=== PATIENT | male | born 1985 | race Caucasian/White ===

== ENCOUNTER 2020-07-06 09:30 | Outpatient (NON) | payer BC, SELFPAY ==
[2020-07-06 20:28] LABS: SARS-CoV-2 RNA PCR Negative
== END 2020-07-06 09:31 ==
PROVIDERS: PCP Family Medicine; Visit Provider Physician Assistant
DX: J02.9 Acute pharyngitis, unspecified (principal); R50.9 Fever, unspecified; Z20.828 Contact with and (suspected) exposure to other viral communicable diseases
CPT/HCPCS: 87635; C9803; U0003

== ENCOUNTER 2021-05-28 01:15 | Day surgery (SDC) | payer BC, SELFPAY ==
[2021-05-27 08:24] VITALS: BMI 35.1
[2021-05-28 09:00] VITALS: BP 152/103; PULSE 89; RESP 18; TEMP 36.2; O2SAT 98; BMI 34.8
[2021-05-28] MEDS: LACTATED RINGERS 1,000 ML 150 ML IV CONT (09:07)
--- NOTE | 2021-05-28 09:41 | WPDANESEPPF ---
Anes - Initial Pre Proc Eval Procedure: Operation Date: 05/28/21 10:00 Proposed Procedures p Esophagogastroduodenoscopy - Delmar Saavedra MD Date/Time: 05/28/21 09:41 Surgeon: Delmar Saavedra MD Pre Op Diagnosis: GERD Patient Data Age: 35 Gender: M Height: 1.78 m Weight: 110.2 kg Last Vital Signs Temp 97.1 F L 05/28/21 09:00 Pulse 89 05/28/21 09:00 Resp 18 05/28/21 09:00 BP 152/103 H 05/28/21 09:00 Pulse Ox 98 05/28/21 09:00 Allergies Allergy/AdvReac Type Severity Reaction Status Date / Time Penicillins Allergy Unknown Hives Verified 05/28/21 08:59 silicone Allergy Unknown Hives Verified 05/28/21 08:59 Home Medications Medication Instructions Recorded Confirmed Type omeprazole 40 mg capsule,delayed 40 mg PO BID #180 cap 02/15/21 05/27/21 Rx release losartan 25 mg PO DAILY 05/27/21 05/27/21 History valacyclovir 500 mg PO DAILY 05/27/21 05/27/21 History Patient hx anesthesia problems: none Family hx anesthesia problems: none [facility] Past Medical History Medical History (Updated 05/28/21 @ 09:32 by Willard Qiu MD) Benign essential hypertension GERD (gastroesophageal reflux disease) Social History Social History Smoking packs per day: 0.5 Smoking cigarettes per day: 10.0 Years smoked: 3 Smoking pack-years: 1.50 Smoking status: Current every day smoker Tobacco type: cigarettes Alcohol intake: current Drinks per week: 6 Alcohol use details: BEERS Substance use: never Substance use type: does not use Living arrangements: with family Spiritual care concerns: No Anes - Eval Final PreProcedure Day of Procedure 05/28/21 09:41 Patient weight: obese Heart: regular rate and rhythm Lungs: clear to auscultation Airway: Mallampati scale class II Neurological: alert and oriented Last oral intake: >/= 8 hours ASA classification: III Emergent: no Anesthetic plan: proceed Anesthesia type and monitoring: general GIVS and standard monitoring Informed Consent: The patient's anesthetic plan and its attendant risks and benefits were discussed with the patient/family/POA. Questions were solicited and answers provided to the satisfaction of the patient/family/POA.
--- NOTE | 2021-05-28 10:02 | PM.HPGS ---
History of Present Illness History of Present Illness Consent: Risks, benefits, and alternatives have been discussed and questions answered. Patient agrees to proceed with procedure. Chief complaint: GERD Narrative: Emigdio Luke is a 35 year old male with symptomatic gerd despite omeprazole bid and sleeping upright position, EGD 2018 with long segment gerber's Review of Systems Constitutional: Constitutional: Denies headache(s) and Denies weakness Eyes: Eyes: Denies blurry vision ENT: Reports Normal hearing present, Denies headache(s) and Denies neck pain Cardiovascular: Cardiovascular: Denies chest pain and Denies dyspnea Respiratory: Respiratory: Denies dyspnea Gastrointestinal: Gastrointestinal: Reports no additional gastrointestinal complaints Genitourinary: Genitourinary: Denies dysuria Musculoskeletal: Musculoskeletal: Denies neck pain Integumentary/Breasts: Skin/Breast: Denies dry skin Neurologic: Reports Normal hearing present, Denies headache(s) and Denies weakness Psychiatric: Psychiatric: Denies anxiety Endocrine: Endocrine: Denies change in body appearance Hematologic/Lymphatic: Hematologic/Lymphatic: Denies easy bleeding Allergic/Immunologic: Allergic/Immunologic: Denies urticaria PMF Past Medical History Medical History (Updated 05/28/21 @ 10:03 by Delmar Saavedra MD) Gerber esophagus Benign essential hypertension GERD (gastroesophageal reflux disease) Social History Social History Smoking packs per day: 0.5 Smoking cigarettes per day: 10.0 Years smoked: 3 Smoking pack-years: 1.50 Smoking status: Current every day smoker Tobacco type: cigarettes Alcohol intake: current Drinks per week: 6 Alcohol use details: BEERS Substance use: never Substance use type: does not use Living arrangements: with family Spiritual care concerns: No Meds Home Medications and Allergies Home Medications Medication Instructions Recorded Confirmed Type omeprazole 40 mg capsule,delayed 40 mg PO BID #180 cap 02/15/21 05/27/21 Rx release losartan 25 mg PO DAILY 05/27/21 05/27/21 History valacyclovir 500 mg PO DAILY 05/27/21 05/27/21 History Allergies Allergy/AdvReac Type Severity Reaction Status Date / Time Penicillins Allergy Unknown Hives Verified 05/28/21 08:59 silicone Allergy Unknown Hives Verified 05/28/21 08:59 Vital Signs Vital Signs - 24 hr 05/28/21 09:00 Temperature 97.1 F L Pulse Rate 89 Respiratory Rate 18 Blood Pressure 152/103 H Pulse Oximetry 98 Exam Const: General: comfortable and no acute distress HENMT: General nose exam: Normal nares present Eyes: General: appearance normal, both eyes and all related structures Neck: Neck: no JVD Resp: Auscultation: clear to auscultation bilaterally Cardio: Rate: regular rate Rhythm: regular rhythm GI: Inspection: non-distended GI Palp: Yes Soft to palpation Skin: General skin exam: normal color Neuro: General: gait normal Speech: normal speech Extrem: General: normal to inspection Psych: Mental Status: mental status grossly normal Assessment and Plan Assessment and plan (1) Gastroesophageal reflux disease: Code(s): K21.9 - Gastro-esophageal reflux disease without esophagitis Status: Acute Assessment and Plan: egd with bx (2) Gerber esophagus: Code(s): K22.70 - Gerber's esophagus without dysplasia Status: Acute
[2021-05-28 10:06] VITALS: BP 138/93; PULSE 98; RESP 19; O2SAT 100
[2021-05-28 10:16] VITALS: BP 130/90; PULSE 81; RESP 23; O2SAT 93
[2021-05-28 10:26] VITALS: BP 104/85; PULSE 85; RESP 19; O2SAT 96
== END 2021-05-28 10:29 | disposition home or self-care (01) ==
PROVIDERS: PCP Family Medicine; Visit Provider Internal Medicine Gastroenterology
PROC: 0DJ08ZZ Inspection of Upper Intestinal Tract, Via Natural or Artificial Opening Endoscopic (ICD-10-PCS; CPT 43235; principal; 2021-05-28 10:00)
DX: K21.00 Gastro-esophageal reflux disease with esophagitis, without bleeding (principal); K22.70 Barrett's esophagus without dysplasia; K44.9 Diaphragmatic hernia without obstruction or gangrene; K29.50 Unspecified chronic gastritis without bleeding; F17.210 Nicotine dependence, cigarettes, uncomplicated; E66.9 Obesity, unspecified; Z68.34 Body mass index [BMI] 34.0-34.9, adult; I10 Essential (primary) hypertension
CPT/HCPCS: 43239; 88305; J2704; J7120

== ENCOUNTER 2021-07-09 08:14 | Outpatient (CLI) | payer BC, SELFPAY ==
--- NOTE | ~2021-07-09 | XR_ITS ---
EXAMINATION: XR UGIAC w barium swallow DATE: 07/09/2021 08:54 INDICATION: Gastroesophageal reflux disease without esophagitis TECHNIQUE: The patient drank thick barium, gas-producing crystals, and thin barium. Fluoroscopy of th e esophagus, stomach, and proximal small bowel were performed. Fluoroscopy exposure time was 2.7 liane artur. The DAP for this procedure was 32.933 Gycm2. COMPARISON: None. FINDINGS: There is no mass or stricture of the esophagus. Esophageal motility is normal. There is a m oderate-sized hiatal hernia. There was a significant spontaneous and provoked gastroesophageal reflux . The stomach and proximal small bowel show normal folding patterns. IMPRESSION: 1. Moderate size hiatal hernia with significant reflux. Reviewed, dictated and finalized at location A.
== END 2021-07-09 08:15 | disposition home or self-care (01) ==
PROVIDERS: PCP Family Medicine; Visit Provider Surgery
DX: K21.00 Gastro-esophageal reflux disease with esophagitis, without bleeding (principal); K22.70 Barrett's esophagus without dysplasia; K44.9 Diaphragmatic hernia without obstruction or gangrene
CPT/HCPCS: 74246

== ENCOUNTER 2021-08-30 13:50 | Outpatient (CLI) | payer BC, SELFPAY ==
--- NOTE | 2021-08-30 14:22 | ECG_ITS ---
Measurements Intervals Farner Rate: 63 P: 14 MT: 172 QRS: 7 QRSD: 100 T: 7 QT: 377 QTc: 388 Interpretive Statements SINUS RHYTHM INCOMPLETE RIGHT BUNDLE BRANCH BLOCK BASELINE ARTIFACT- I, II, III, AVR, AVL BORDERLINE ECG Electronically Signed On 08-30-2021 16:08:48 CDT by Adam Fleming D.O.
[2021-08-30 14:38] LABS: Hematocrit 36.7 % (42.0-52.0); Hemoglobin 12.3 g/dL (14.0-18.0)
== END 2021-08-30 13:51 | disposition home or self-care (01) ==
PROVIDERS: Anesthesiology; PCP Physician Assistant; Visit Provider Surgery
DX: Z01.818 Encounter for other preprocedural examination (principal); K21.9 Gastro-esophageal reflux disease without esophagitis
CPT/HCPCS: 36415; 85014; 85018; 93005

== ENCOUNTER 2021-09-23 16:11 | Observation (INO) | payer BC, SELFPAY ==
[2021-08-30 13:52] VITALS: BP 134/90; PULSE 66; RESP 20; TEMP 36.9; O2SAT 98; BMI 36.8
--- NOTE | 2021-09-21 12:09 | PM.IMHP ---
H&P: HPI History of Present Illness Date/Time: 09/21/21 12:09 Chief Complaint: Gastroesophageal reflux Narrative: Emigdio is a 35 year old male who present for a surgical consultation at the request of Dr. Magaña. He has a 2 year history of GERD and Vizcaino's esophageus which he has been on Esomeprazole 40 mg BID for treatment. For the past 1 year, he has had coughing at night and vomiting bile. He has made multiple changes to help this. He sleeps with a wedge pillow under his head to help. He no longer eats after 6 p.m. He no longer sleeps on his stomach and now sleeps on his side. He smokes about half pack a day of cigarettes and drinks about 1-2 beers a night. He had a EGD on 05-28-21 which showed a 7cm long segment Vizcaino's mucosa was present in the mid esophagus and in the distal esophagus. The upper border of Vizcaino';s mucosa was 29 cm from the incisors and lower border at 36 cm. Multiple biopsies taken. A medium hiatal hernia was found at the GE junction. The hiatal hernia appeared at the depth of 36cm to 40 cm from the incisor. This is about 4 cm in size. Mild gastritis was seen in the stomach. The gastritis had a mild erythematous changes.Biopsies showed: stomach- non specific mild chronic gastritis, esophagus at 36-35cm Vizcaino's esophagus with moderate chronic esophagitis consistent with reflux. Negative for dysplasia, ulcer and neoplasm. Esophagus at 34-33- Vizcaino's esophagus with moderate chronic esophagitis consistent with reflux. Negative for dysplasia, ulcer, neoplasm. Esophagus at 32-31 Vizcaino's esophagus with moderate chronic esophagitis consistent with reflux. Negative for squamous mucosa, dysplasia, ulcer and neoplasm. Esophagus at 30-29 cm Vizcaino's esophagus with mild chronic esophagitis. Negative for dysplasia, ulcer, and neoplasm. He also had a EGD in 2018 which showed long segment Vizcaino's. He is currently being treated for HTN. His current BMI is 35.3. He was seen in the office last June and esophageal manometry as well as an upper GI was done following that visit. The esophagram, upper GI showed a moderate-sized hiatal hernia with reflux. The esophageal manometry showed a hypotensive lower esophageal sphincter but adequate esophageal body peristalsis for fundoplication. Patient was seen back in the office in late July and the results were discussed. The procedure of laparoscopic Boaz fundoplication was discussed thoroughly. He is taken to surgery now to proceed with this surgery. Review of Systems Review of Systems: All systems reviewed & are unremarkable except as noted in HPI and below Constitutional: Constitutional: Denies chills and Denies fever(s) Cardiovascular: Cardiovascular: Denies chest pain, Denies diaphoresis, Denies dyspnea and Denies paroxysmal nocturnal dyspnea Respiratory: Respiratory: Denies chest congestion, Denies cough and Denies dyspnea Integumentary/Breasts: Skin/Breast: Denies lesions and Denies rash [facility] Past Medical History Medical History (Updated 09/21/21 @ 12:20 by Dylan Arthur MD) Vizcaino's esophagus without dysplasia Benign essential hypertension Gastroesophageal reflux disease with esophagitis Hiatal hernia Surgical History Surgical History History of esophagogastroduodenoscopy (EGD) History of laparoscopic appendectomy 2003 Social History Social History Smoking packs per day: 0.5 Smoking cigarettes per day: 10.0 Years smoked: 3 Smoking pack-years: 1.50 Smoking status: Former smoker Tobacco type: cigarettes Second hand tobacco smoke exposure: No Additional smoking assessment comments: STATES HAS NOT SMOKED SINCE MARCH 2021 - DENIES ALL FORMS OF TOBACCO USE Alcohol intake: former Drinks per week: 6 Alcohol use details: [facility] WAS DRINKING 6 BEERS/WK, NONE SINCE JUL 2021 Substance use: never Substance use type: does not use Spiritua
--- NOTE | 2021-09-21 13:48 | P.PNAN_ITS ---
Anes - Initial Pre Proc Eval Procedure: Operation Date: 09/22/21 10:30 Proposed Procedures p Laparoscopic Boaz Fundoplication - Dylan Arthur MD Date/Time: 09/21/21 13:48 Surgeon: Dylan Arthur MD Pre Op Diagnosis: gerd, gerber's esophagus Patient Data Age: 36 Gender: M Height: 1.78 m Weight: 116.4 kg Last Vital Signs Temp 36.9 C 08/30/21 13:52 Pulse 66 08/30/21 13:52 Resp 20 08/30/21 13:52 BP 134/90 08/30/21 13:52 Pulse Ox 98 08/30/21 13:52 Allergies Allergy/AdvReac Type Severity Reaction Status Date / Time Penicillins Allergy Unknown Hives Verified 09/22/21 08:40 silicone Allergy Unknown Hives Verified 09/22/21 08:40 Home Medications Medication Instructions Recorded Confirmed Type losartan 25 mg PO QAM 05/27/21 09/22/21 History valacyclovir 500 mg PO QAM 05/27/21 09/22/21 History omeprazole 40 mg capsule,delayed 40 mg PO BID #180 cap 09/17/21 09/22/21 Rx release Patient hx anesthesia problems: none Family hx anesthesia problems: none Results Review: All pre-operative results and documents have been reviewed as part of the pre-operative evaluation. FOR[facility]LY [facility], [facility] Past Medical History Medical History Gerber's esophagus without dysplasia Benign essential hypertension BMI 35.0-35.9,adult Gastroesophageal reflux disease with esophagitis Hiatal hernia Smoker Surgical History Surgical History History of esophagogastroduodenoscopy (EGD) History of laparoscopic appendectomy 2003 Social History Social History Smoking packs per day: 0.5 Smoking cigarettes per day: 10.0 Years smoked: 3 Smoking pack-years: 1.50 Smoking status: Former smoker (Patient hasn't had a cigarette in 6 weeks) Tobacco type: cigarettes Second hand tobacco smoke exposure: No Additional smoking assessment comments: STATES HAS NOT SMOKED SINCE MARCH 2021 - DENIES ALL FORMS OF TOBACCO USE Alcohol intake: current Drinks per week: 6 Alcohol use details: BEERS Substance use: never Substance use type: does not use Living arrangements: with family Spiritual care concerns: No Anes - Eval Final PreProcedure Day of Procedure 09/21/21 13:48 Patient weight: obese Heart: regular rate and rhythm Lungs: clear to auscultation and normal air movement Airway: Mallampati scale class II Neurological: alert and oriented Last oral intake: >/= 8 hours ASA classification: III Emergent: no Anesthetic plan: proceed Anesthesia type and monitoring: general ETT Results Review: All pre-operative results and documents have been reviewed as part of the pre-operative evaluation. Informed Consent: The patient's anesthetic plan and its attendant risks and benefits were discussed with the patient/family/POA. Questions were solicited and answers provided to the satisfaction of the patient/family/POA.
[2021-09-22] VITALS (15 sets, daily range): BP systolic 125–141; BP diastolic 80–94; PULSE 72–95; RESP 12–18; TEMP 36.1–36.9; O2SAT 94–100
[2021-09-22] MEDS: LACTATED RINGERS 1,000 ML 30 ML IV CONT ×3 (09:10→15:07)
[2021-09-22] MEDS: diphenhydrAMINE HCl INJ 50 MG/ML VIAL IV PUSH (10:33)
--- NOTE | 2021-09-22 10:58 | WPDHPUPDATE1 ---
History and Physical Update Update Date/Time: 09/22/21 10:58 History and Physical has been reviewed, including an updated exam of the patient. There are NO changes in the patient's condition. Risks, benefits, and alternatives have been discussed and questions answered. Patient agrees to proceed with procedure.
[2021-09-22] MEDS: ceFAZolin 2 GM/D5W 50 ML 2 GM/50 ML BAG IVPB (11:02)
[2021-09-22] MEDS: BUPIVACAINE HCL 0.5% PF 30 ML VIAL INFILTRATE (12:15)
[2021-09-22] MEDS: fentaNYL CITRATE INJ (*CRX) 100 MCG/2 ML VIAL 25 MCG IV PUSH ×8 (15:10→15:53)
--- NOTE | 2021-09-22 15:22 | W.PM.PROC2 ---
Procedure Note - Detailed Date of Procedure 09/22/21 Pre-op Diagnosis gerd with esophagitis, gerber's esophagus Post-op Diagnosis same Procedure Performed Laparoscopic Boaz fundoplication Surgeon Dylan Arthur MD Ring Packer Chaya Marcano FNP. Anesthesia general and local (0.5% Marcaine) Indications Patient has persistent symptoms of reflux and regurgitation despite taking twice daily proton pump inhibitors. EGD has shown long segment Gerber's esophagus as well as chronic esophagitis even on medication. The Gerber's did not show any dysplasia. Patient's esophageal manometry showed normal peristalsis. He is taken to surgery now for laparoscopic Boaz fundoplication Findings Patient had a larger hiatal hernia than what was appreciated on upper GI and by EGD report. At least 50% of his stomach was in the chest. He had quite a large hernia sac as well. There was an esophageal shortening and this required extensive mediastinal dissection to get adequate length of the esophagus in the abdomen. No other significant findings. Description of Procedure Patient was taken to surgery and induced into general anesthesia. The abdomen is prepped and draped. The varies needle was used for the initial placement of insufflation. This was in the port just cephalad to the umbilicus in the midline. With the abdomen distended, we then used applied Medical [address] the initial port. Then with full insufflation the remaining ports were placed. Two ports were placed on either side of the midline higher in the abdomen. A right and left subcostal lateral port was placed on each side. The left side was a 10 11 port the right side was a 12 mm port. Patient was placed in reverse Trendelenburg. Liver retractor was introduced through the left-sided 12 mm port. This was placed under the lateral segment of the left lobe of the liver and an procurement assistant retracted this throughout the surgery. We started the surgery by dividing the gastrohepatic ligament in a clear area. The LigaSure was used for nearly the entire dissection. We continued the dissection on to the right tiffanie and exposed it. We then the tiffanie from the hernia sac on the right side and began dissection up into the mediastinum. This was mostly done with blunt dissection although some LigaSure cautery was used as well. We freed the hernia sac and reduced the stomach entirely. We continued our dissection and were able to reduce the hernia sac completely. The most posterior aspect of the left tiffanie was also exposed and dissected. We freed the esophagus from mediastinal adhesions in the lower portion of the mediastinum primarily from the anterior and right aspects. From there, the stomach was pulled so up so the greater curvature was elevated anterior and we placed traction on the greater omentum. The LigaSure was used to divide the greater omentum from the greater curvature of the stomach and enter the lesser sac. This dissection was continued cephalad along the border of the fundus and cardia of the stomach until we were in the area of the esophageal hiatus. Additional adhesions of the posterior aspect of the stomach to the retroperitoneum were divided with LigaSure as well. The hernia sac was dissected out of the mediastinum from the patient's left side from this exposure. Eventually the entire left tiffanie was dissected free from adhesions and the hernia sac. We continued our dissection of the distal esophagus from this exposure and dissected up well into the mediastinum freeing the esophagus. Care was taken to avoid injury to the vagus nerves. We then returned the stomach to its more normal position and resumed dissection on the right side of the esophagus. With gentle traction on the upper stomach and lower esophagus at the level of the left tiffanie, I was able to continued dissection of the mediastinum and the esophagus farther up on the patient's right side. There
--- NOTE | 2021-09-22 16:09 | SUR.PHASEI ---
[id number] - dr. hillman at bedside talking with pt
--- NOTE | 2021-09-22 17:21 | PC.NURSE ---
This patient, Emigdio Luke, was admitted to Medical Room 344-01. Patient/family oriented to hospital policies and general routines including ID bracelet, bed and alarms, visiting hours, pain management, procedures, bathroom and other care routines, personal items, smoking policy, room service/diet, and visiting hours. Information on how to activate the Rapid Response Team has been discussed. Patient/Family are encouraged to report perceived risks to care and to ask questions if they do not understand what they are told or what they should do.
[2021-09-22] MEDS: LACTATED RINGERS 1,000 ML 80 ML IV CONT (17:33)
[2021-09-22] MEDS: HYDROcodone/acetaminophen (*CRX) 5-325 MG TABLET 1 TAB PO (18:30)
[2021-09-22] MEDS: MORPHINE SULFATE (*CRX) 2 MG/ML INJ IV PUSH (21:11)
[2021-09-23] MEDS: HYDROcodone/acetaminophen (*CRX) 10-325 MG TABLET 1 TAB PO ×4 (04:01→22:36)
[2021-09-23 04:04] VITALS: BP 145/88; PULSE 74; RESP 17; TEMP 36.4; O2SAT 97
[2021-09-23 05:54] LABS: Hematocrit 42.6 % (42.0-52.0); Hemoglobin 13.5 g/dL (14.0-18.0); Mean Corpuscular HGB Conc 31.7 g/dl (32-36); Mean Corpuscular Hemoglobin 27.8 pg (26-34); Mean Corpuscular Volume 87.8 fl (80-100); Mean Platelet Volume 11.7 fl (7.4-10.4); Platelet Count Result 183 k/mm3 (150-375); Red Blood Count 4.85 M/mm3 (4.6-6.20); Red Cell Distribution Width 13.4 % (11.5-14.5); White Blood Count 9.2 K/mm3 (4.5-10.0)
[2021-09-23] MEDS: LACTATED RINGERS 1,000 ML 80 ML IV CONT (06:08)
[2021-09-23 06:11] LABS: Anion Gap 8 mmol/L (8-16); Blood Urea Nitrogen 14 mg/dL (9-20); Carbon Dioxide 26 mmol/L (22-30); Chloride 99 mmol/L (98-107); Estimated CRCL calculation 114 ml/min; Estimated Glomerular Filt Rate > 60; Glucose 107 mg/dL (65-110); Sodium 133 mmol/L (137-145)
[2021-09-23] MEDS: PANTOPRAZOLE 40 MG TABLET PO (07:36)
[2021-09-23] MEDS: LOSARTAN POTASSIUM 25 MG TABLET PO (07:36)
[2021-09-23] MEDS: ENOXAPARIN 40 MG/0.4 ML SYRINGE SUB-Q (07:36)
[2021-09-23] MEDS: valACYclovir HCL 500 MG TABLET PO (07:36)
--- NOTE | 2021-09-23 12:30 | WPDANESPN ---
Anes - Prog Note Post-Op Date/Time: 09/23/21 12:30 Cardiovascular status: normal Respiratory status: normal Airway patency: baseline Mental status: baseline Post-Op hydration status: normal Vital Signs: Last Vital Signs Temp 36.4 C 09/23/21 04:04 Pulse 74 09/23/21 04:04 Resp 17 09/23/21 04:04 BP 145/88 H 09/23/21 04:04 Pulse Ox 97 09/23/21 04:04 Pain Score (VAS): 0 I/O: Intake & Output 09/22/21 09/23/21 09/23/21 23:59 07:59 15:59 Intake Total 100 1200 360 Output Total 765 800 Balance 100 435 -440 Laboratory Tests 09/23/21 05:26 09/23/21 05:26 09/23/21 09/23/21 05:26 05:26 WBC 9.2 RBC 4.85 Hgb 13.5 L Hct 42.6 MCV 87.8 MCH 27.8 MCHC 31.7 L RDW 13.4 Plt Count 183 MPV 11.7 H Sodium 133 L Potassium 4.0 Chloride 99 Carbon Dioxide 26 Anion Gap 8 BUN 14 Creatinine 1.00 Estim Creat Clear Calc 114 Estimated GFR > 60 Glucose 107 Calcium 9.0 Post-procedural complaints: none Patient Feedback: Patient satisfied with anesthetic care.
[2021-09-23] MEDS: MORPHINE SULFATE (*CRX) 2 MG/ML INJ IV PUSH ×2 (13:10→20:20)
--- NOTE | 2021-09-23 14:41 | PM.PNGS ---
Progress Note: A&P Assessment and Plan (1) Gastroesophageal reflux disease with esophagitis: Code(s): K21.00 - Gastro-esophageal reflux disease with esophagitis, without bleeding Status: Chronic Assessment and Plan: Doing well status post repair of hiatal hernia and Boaz fundoplication. Will advance to full liquids and possibly soft diet. Up walking more today. Saline lock his IV fluid. Continue home medications for hypertension. Patient will remain in the hospital as he is unsteady on his feet and still having significant amount of postoperative pain. So far the dysphagia is not bad. (2) Vizcaino's esophagus without dysplasia: Code(s): K22.70 - Vizcaino's esophagus without dysplasia Status: Chronic Subjective Subjective Date/Time Seen: 09/23/21 08:15 Post Op day: 1 Patient reports: no new complaints, pain is less, tolerating liquids well, no flatus and no bowel movement Exam Const: General: comfortable and no acute distress; No confusion Orientation/consciousness: patient oriented x3 and No confusion GI: Inspection: non-distended, incision (All incisions dry and healing well) and obesity GI Palp: Yes Soft to palpation, Yes Tenderness to palpation present (GI), No Guarding due to palpation present (GI) and No Rebound tenderness present Auscultation: normal bowel sounds Neuro: General: patient oriented x3, no focal motor deficits and No confusion Extrem: General: no calf tenderness and no edema Psych: Affect: normal affect Insight: Good insight present (Psych) Judgement: Good judgement present (Psych) Objective Data Vital Signs Vital Signs: Vital Signs - 24 hr 09/22/21 15:07 09/22/21 15:15 09/22/21 15:30 Temperature 36.1 C L Pulse Rate 95 83 82 Respiratory Rate 14 12 12 Blood Pressure 135/82 139/87 130/86 Pulse Oximetry 99 99 94 09/22/21 15:45 09/22/21 16:00 09/22/21 16:15 Temperature Pulse Rate 81 80 80 Respiratory Rate 12 12 12 Blood Pressure 132/88 127/84 132/80 Pulse Oximetry 98 98 98 09/22/21 16:30 09/22/21 16:45 09/22/21 17:35 Temperature 36.5 C Pulse Rate 80 78 83 Respiratory Rate 12 14 14 Blood Pressure 125/83 126/84 125/81 Pulse Oximetry 99 97 100 09/22/21 17:41 09/22/21 17:50 09/22/21 18:20 Temperature 36.5 C 36.6 C Pulse Rate 72 84 Respiratory Rate 16 16 Blood Pressure 135/84 137/89 Pulse Oximetry 98 100 100 09/22/21 19:22 09/22/21 20:00 09/23/21 04:04 Temperature 36.9 C 36.4 C Pulse Rate 90 90 74 Respiratory Rate 18 18 17 Blood Pressure 130/81 145/88 H Pulse Oximetry 99 99 97 Intake/Output Intake/Output: Intake & Output 09/20/21 09/21/21 09/22/21 09/23/21 23:59 23:59 23:59 23:59 Intake Total 1150 1920 Output Total 1565 Balance 1150 355 Meds/Results Medications: Active Medications Generic Name Dose Route Start Last Admin Trade Name Freq PRN Reason Stop Dose Admin Acetaminophen 500 mg 09/22/21 16:54 Acetaminophen 500 Mg Tablet PO Q6H PRN Mild Pain (1-3) or Fever Hydrocodone Bitart/Acetaminophen 1 tab 09/22/21 16:54 09/22/21 18:30 Hydrocodone/Acetaminophen (*Crx) 5-325 Mg Tablet PO 1 tab Q4H PRN Administration Pain Rated 4-6 Hydrocodone Bitart/Acetaminophen 1 tab 09/22/21 16:54 09/23/21 09:42 Hydrocodone/Acetaminophen (*Crx) 10-325 Mg Tablet PO 1 tab Q6H PRN Administration Pain Rated 7-10 Diphenhydramine HCl 25 mg 09/22/21 16:54 Diphenhydramine Hcl Inj 50 Mg/Ml Vial IV PUSH Q6H PRN Itching Enoxaparin Sodium 40 mg 09/23/21 09:00 09/23/21 07:36 Enoxaparin 40 Mg/0.4 Ml Syringe SUB-Q 40 mg DAILY ROSS Administration Losartan Potassium 25 mg 09/23/21 09:00 09/23/21 07:36 Losartan Potassium 25 Mg Tablet PO 25 mg QAM ROSS Administration Morphine Sulfate 2 mg 09/22/21 16:54 09/23/21 13:10 Morphine Sulfate (*Crx) 2 Mg/Ml Inj IV PUSH 2 mg Q2H PRN Administration Pain Rated 4-6 Morphine Sulfate 4 mg 11
[2021-09-23 19:57] VITALS: BP 132/90; PULSE 98; RESP 16; TEMP 36.4; O2SAT 96
[2021-09-23 20:00] VITALS: PULSE 98; RESP 16; O2SAT 96
[2021-09-24 05:19] VITALS: BP 159/92; PULSE 98; RESP 18; TEMP 36.5; O2SAT 97
[2021-09-24] MEDS: HYDROcodone/acetaminophen (*CRX) 10-325 MG TABLET 1 TAB PO ×2 (05:47→13:18)
[2021-09-24 05:49] LABS: Hematocrit 41.5 % (42.0-52.0); Hemoglobin 13.5 g/dL (14.0-18.0); Mean Corpuscular HGB Conc 32.5 g/dl (32-36); Mean Corpuscular Volume 85.9 fl (80-100); Mean Platelet Volume 11.5 fl (7.4-10.4); Platelet Count Result 174 k/mm3 (150-375); Red Blood Count 4.83 M/mm3 (4.6-6.20); Red Cell Distribution Width 13.4 % (11.5-14.5)
--- NOTE | 2021-09-24 05:51 | PC.NURSE ---
Pt up and ambulated to bathroom, refused walk in the zabala, encouraged to sit in chair and be out of bed.
[2021-09-24 06:01] LABS: Anion Gap 3 mmol/L (8-16); Blood Urea Nitrogen 10 mg/dL (9-20); Calcium 9.1 mg/dL (8.4-10.2); Carbon Dioxide 29 mmol/L (22-30); Chloride 102 mmol/L (98-107); Estimated CRCL calculation 140 ml/min; Estimated Glomerular Filt Rate > 60; Glucose 107 mg/dL (65-110); Potassium 3.8 mmol/L (3.4-5.0); Sodium 134 mmol/L (137-145)
[2021-09-24] MEDS: LOSARTAN POTASSIUM 25 MG TABLET PO (08:19)
[2021-09-24] MEDS: PANTOPRAZOLE 40 MG TABLET PO (08:20)
[2021-09-24] MEDS: ENOXAPARIN 40 MG/0.4 ML SYRINGE SUB-Q (08:20)
[2021-09-24] MEDS: valACYclovir HCL 500 MG TABLET PO (08:20)
--- NOTE | 2021-09-24 12:54 | PM.PNGS ---
Progress Note: A&P Assessment and Plan (1) Gastroesophageal reflux disease with esophagitis: Code(s): K21.00 - Gastro-esophageal reflux disease with esophagitis, without bleeding Status: Chronic Assessment and Plan: still pretty uncomfortable with right flank pain at the trocar site as well as epigastric and lower chest pain. Not ambulating well and morphine lasts only a short time. Will add oral ibuprofen 600 mg p.o. q.6 hours. Encouraged use of spirometer. Advance to soft diet. Still too uncomfortable and not ambulating well enough to be discharged. (2) Vizcaino's esophagus without dysplasia: Code(s): K22.70 - Vizcaino's esophagus without dysplasia Status: Chronic Subjective Subjective Date/Time Seen: 09/24/21 12:54 Post Op day: 2 Patient reports: still having pain, tolerating liquids well, no bowel movement and afebrile Exam Const: General: comfortable and no acute distress; No confusion Orientation/consciousness: patient oriented x3 and No confusion Resp: Effort & Inspection: normal respiratory effort Auscultation: clear to auscultation bilaterally GI: Inspection: no abdominal wall ecchymosis, non-distended, incision ( all incisions healing well) and obesity GI Palp: Yes Soft to palpation, Yes Tenderness to palpation present (GI) ( incisional), No Guarding due to palpation present (GI), No Hernia present, No Palpable mass present and No Rebound tenderness present Auscultation: normal bowel sounds Neuro: General: patient oriented x3, no focal motor deficits and No confusion Extrem: General: no calf tenderness and no edema Psych: Affect: normal affect Insight: Good insight present (Psych) Judgement: Good judgement present (Psych) Objective Data Vital Signs Vital Signs: Vital Signs - 24 hr 09/23/21 19:57 09/23/21 20:00 09/24/21 05:19 Temperature 36.4 C 36.5 C Pulse Rate 98 98 98 Respiratory Rate 16 16 18 Blood Pressure 132/90 159/92 H Pulse Oximetry 96 96 97 Intake/Output Intake/Output: Intake & Output 09/21/21 09/22/21 09/23/21 09/24/21 23:59 23:59 23:59 23:59 Intake Total 1150 2280 440 Output Total 3115 Balance 1150 -835 440 Meds/Results Medications: Active Medications Generic Name Dose Route Start Last Admin Trade Name Freq PRN Reason Stop Dose Admin Acetaminophen 500 mg 09/22/21 16:54 Acetaminophen 500 Mg Tablet PO Q6H PRN Mild Pain (1-3) or Fever Hydrocodone Bitart/Acetaminophen 1 tab 09/22/21 16:54 09/22/21 18:30 Hydrocodone/Acetaminophen (*Crx) 5-325 Mg Tablet PO 1 tab Q4H PRN Administration Pain Rated 4-6 Hydrocodone Bitart/Acetaminophen 1 tab 09/22/21 16:54 09/24/21 05:47 Hydrocodone/Acetaminophen (*Crx) 10-325 Mg Tablet PO 1 tab Q6H PRN Administration Pain Rated 7-10 Diphenhydramine HCl 25 mg 09/22/21 16:54 Diphenhydramine Hcl Inj 50 Mg/Ml Vial IV PUSH Q6H PRN Itching Enoxaparin Sodium 40 mg 09/23/21 09:00 09/24/21 08:20 Enoxaparin 40 Mg/0.4 Ml Syringe SUB-Q 40 mg DAILY ROSS Administration Ibuprofen 600 mg 09/24/21 12:55 Ibuprofen 600 Mg Tablet PO Q6H ROSS Losartan Potassium 25 mg 09/23/21 09:00 09/24/21 08:19 Losartan Potassium 25 Mg Tablet PO 25 mg QAM ROSS Administration Morphine Sulfate 2 mg 09/22/21 16:54 09/23/21 20:20 Morphine Sulfate (*Crx) 2 Mg/Ml Inj IV PUSH 2 mg Q2H PRN Administration Pain Rated 4-6 Morphine Sulfate 4 mg 09/22/21 16:54 Morphine Sulfate (*Crx) 4 Mg/Ml Inj IV PUSH Q2H PRN Pain Rated 7-10 Naloxone HCl 0.1 mg 09/22/21 16:54 Naloxone Hcl 0.4 Mg/Ml Vial IV PUSH Q2M PRN Opiate Reversal Ondansetron HCl 4 mg 09/22/21 16:54 Ondansetron Inj 4 Mg/2 Ml Vial IV PUSH Q4H PRN Nausea And Vomiting Pantoprazole Sodium 40 mg 09/23/21 09:00 09/24/21 08:20 Pantoprazole 40 Mg Tablet PO 40 mg QAM ROSS Administration Valacyclovir HCl 500 mg 09/23/21 09:00
[2021-09-24] MEDS: IBUPROFEN 600 MG TABLET PO ×3 (13:20→23:23)
[2021-09-24 22:00] VITALS: BP 116/87; PULSE 78; RESP 18; TEMP 36.6; O2SAT 96
[2021-09-25 00:36] VITALS: O2SAT 95
[2021-09-25] MEDS: IBUPROFEN 600 MG TABLET PO ×2 (05:46→12:08)
[2021-09-25] MEDS: HYDROcodone/acetaminophen (*CRX) 5-325 MG TABLET 1 TAB PO (05:46)
[2021-09-25 06:45] LABS: Hematocrit 42.1 % (42.0-52.0); Hemoglobin 13.7 g/dL (14.0-18.0); Mean Corpuscular HGB Conc 32.5 g/dl (32-36); Mean Corpuscular Hemoglobin 27.7 pg (26-34); Mean Corpuscular Volume 85.1 fl (80-100); Mean Platelet Volume 11.2 fl (7.4-10.4); Platelet Count Result 194 k/mm3 (150-375); Red Blood Count 4.95 M/mm3 (4.6-6.20); Red Cell Distribution Width 13.2 % (11.5-14.5); White Blood Count 6.9 K/mm3 (4.5-10.0)
[2021-09-25 07:34] VITALS: BP 149/99; PULSE 83; RESP 18; TEMP 36.5; O2SAT 96
[2021-09-25 07:45] LABS: Anion Gap 4 mmol/L (8-16); Blood Urea Nitrogen 12 mg/dL (9-20); Calcium 9.4 mg/dL (8.4-10.2); Carbon Dioxide 31 mmol/L (22-30); Chloride 101 mmol/L (98-107); Estimated CRCL calculation 114 ml/min; Estimated Glomerular Filt Rate > 60; Glucose 102 mg/dL (65-110); Potassium 4.2 mmol/L (3.4-5.0); Sodium 136 mmol/L (137-145)
[2021-09-25] MEDS: PANTOPRAZOLE 40 MG TABLET PO (08:22)
[2021-09-25] MEDS: LOSARTAN POTASSIUM 25 MG TABLET PO (08:22)
[2021-09-25] MEDS: ENOXAPARIN 40 MG/0.4 ML SYRINGE SUB-Q (08:22)
[2021-09-25] MEDS: valACYclovir HCL 500 MG TABLET PO (08:22)
--- NOTE | 2021-09-25 13:27 | PM.DS ---
DS: Admitting Diagnosis Discharge Date 09/25/2021 Admitting Diagnosis GERD, Vizcaino's esophagus without dysplasia, BMI 37, smoker, hypertension DS: Discharge Diagnosis Discharge Diagnosis (1) Gastroesophageal reflux disease with esophagitis: Code(s): K21.00 - Gastro-esophageal reflux disease with esophagitis, without bleeding Status: Chronic (2) Vizcaino's esophagus without dysplasia: Code(s): K22.70 - Vizcaino's esophagus without dysplasia Status: Chronic (3) BMI 37.0-37.9, adult: Code(s): Z68.37 - Body mass index [BMI] 37.0-37.9, adult Status: Chronic (4) Smoker: Code(s): F17.200 - Nicotine dependence, unspecified, uncomplicated Status: Chronic (5) Benign essential hypertension: Code(s): I10 - Essential (primary) hypertension Status: Chronic DS: Summary Hospital Course Reason for hospitalization: postoperative recovery after laparoscopic Boaz fundoplication Hospital Course: this is a 36-year-old man who presented for elective laparoscopic Boaz fundoplication on 09/22/2021. Surgery was uncomplicated and he was admitted to the hospital for postoperative recovery. He was kept on clear liquid diet initially. On postop day 1 he was advanced to full liquids diet and his pain was slightly better controlled. He was still not ambulating very much. On postoperative day 2 he was still uncomfortable but was tolerating diet. His diet was advanced to a soft diet. On postop day 3 he was tolerating the solid diet without any nausea or vomiting. He did have some slight dysphagia, but that was dependent on what he was eating. Discussed staying away from red meat initially and trying to have very small bites of easy to chew food. He was remaining hemodynamically stable and pain was well controlled. He was discharged on 09/25/2021. Status at Discharge Functional status at discharge: independent ambulation Overall status at discharge: patient is progressing back to baseline Time Spent with Patient Time attestation: Total time spent providing and/or coordinating discharge services: Time spent: Less than 30 minutes Exam Const: General: cooperative and no acute distress Orientation/consciousness: patient oriented x3 Resp: Effort & Inspection: normal respiratory effort Auscultation: clear to auscultation bilaterally Cardio: Rate: regular rate Rhythm: regular rhythm Heart sounds: S1 normal heart sound present and S2 normal heart sound present GI: Inspection: non-distended and incision ( Intact with glue) GI Palp: Yes Soft to palpation, Yes Tenderness to palpation present (GI) ( incisional) and No Guarding due to palpation present (GI) Auscultation: normal bowel sounds DS: Data Data Completed and Pending Labs on day of discharge: Labs from last 24 hours 09/25/21 09/25/21 06:24 06:24 WBC 6.9 RBC 4.95 Hgb 13.7 L Hct 42.1 MCV 85.1 MCH 27.7 MCHC 32.5 RDW 13.2 Plt Count 194 MPV 11.2 H Sodium 136 L Potassium 4.2 Chloride 101 Carbon Dioxide 31 H Anion Gap 4 L BUN 12 Creatinine 1.00 Estim Creat Clear Calc 114 Estimated GFR > 60 Glucose 102 Calcium 9.4 Discharge Plan Discharge Attending physician on discharge: Dylan Arthur Discharging Clinician: Montrell Adamson Patient Disposition: Home, Self-Care Activity: may shower, no straining and as tolerated Diet: regular and other - see discharge instructions Wound Care Instructions: incision open to air Discharge Instructions: Ambulate 3-4 x per day and as tolerated. No lifting over 15-20lbs. May bathe or shower. Stairs are OK. May drive a car in 3 days. Mostly soft diet- eat slowly, chew food well, take small bites. Patient Instructions: Antibiotic Form, Pain Management (DC), GERD (Gastroesophageal Reflux Disease) (DC), Vizcaino Esophagus (DC), Fundoplication in Adults (DC) Stand Alone Forms: General Discharge Information
== END 2021-09-25 14:42 | disposition home or self-care (01) ==
LOC: ANHSURGERY 16:41 → ANH3MED 09-24 13:15
PROVIDERS: Admitting Provider Surgery; PCP Physician Assistant; Visit Provider Surgery
PROC: 0DV44ZZ Restriction of Esophagogastric Junction, Percutaneous Endoscopic Approach (ICD-10-PCS; CPT 43281; principal; 2021-09-22 10:30)
DX: K21.00 Gastro-esophageal reflux disease with esophagitis, without bleeding (principal); K22.70 Barrett's esophagus without dysplasia; K44.9 Diaphragmatic hernia without obstruction or gangrene; G89.18 Other acute postprocedural pain; K29.50 Unspecified chronic gastritis without bleeding; I10 Essential (primary) hypertension; Z87.891 Personal history of nicotine dependence; E66.9 Obesity, unspecified; Z68.34 Body mass index [BMI] 34.0-34.9, adult
CPT/HCPCS: 43280; 36415; 80048; 85027; 86850; 86900; 86901; A9270; C1713; G0378; J0330; J0690; J1100; J1170; J1200; J1650; J2250; J2270; J2370; J2704; J2710; J3010; J7120

== ENCOUNTER 2021-10-13 14:59 | Inpatient (IN) | payer BC, SELFPAY ==
[2021-10-13] VITALS (12 sets, daily range): BP systolic 150–173; BP diastolic 100–115; PULSE 74–100; RESP 12–100; TEMP 36; O2SAT 89–100
--- NOTE | ~2021-10-13 | CT_ITS ---
EXAMINATION: CT abdomen pelvis w con EXAM DATE: 10/13/2021 19:27 INDICATION: Abdominal pain. Nausea and vomiting. TECHNIQUE: Spiral CT of the abdomen and pelvis was performed following intravenous injection of 100 m L Omnipaque 350. Axial, coronal and sagittal images of the abdomen and pelvis were reviewed. The do se-length product (DLP) for this examination was 807.49 mGy-cm. The exposure was tailored according to patient size (auto mA exposure control), and iterative reconstruction (ASIR) was used as additiona l dose reduction technique. There is no prior study for comparison. FINDINGS: The liver, spleen, adrenal glands and pancreas are unremarkable. Gallbladder is unremarkab le. No biliary obstruction. Left kidney not identified. No right-sided hydronephrosis. The prostat e is unremarkable. The bladder is undistended at time of imaging. There is no retroperitoneal or pe lvic lymphadenopathy. Several subcutaneous regions of fat stranding, likely abdominal trocar sites identified without hernias. Appearance to the gastroesophageal junction consistent with Niesen fundoplication. There is some timbo a suspected at the gastroesophageal junction, fundoplication site. Probable appendectomy. There is expected amount of colonic stool. No free intraperitoneal gas. The heart is normal in size. Ther e are no pericardial or pleural effusions. The lung bases are unremarkable. There are no osteoblast ic or osteolytic lesions identified. IMPRESSION: Some nonspecific edema of gastroesophageal junction, fundoplication site. Reviewed, dictated and finalized at location A. EOLOGY PROFESSOR
--- NOTE | ~2021-10-13 | XR_ITS ---
EXAMINATION: XR UGI w esoph water soluble DATE: 10/15/2021 10:59 INDICATION: Vomiting, recent fundoplication TECHNIQUE: The patient drank water-soluble contrast. Fluoroscopy of the esophagus, stomach, and proxi mal small bowel was performed. Fluoroscopy exposure time was 3.0 minutes. The DAP for this procedure was 45.053 Gycm2. COMPARISON: None. FINDINGS: There are expected changes of fundoplication. There is slow delayed passage of ingested mat erial into the stomach. For reference, ingested oral contrast persisted in the distal esophagus great er than 90 seconds after ingestion. The visualized small bowel is unremarkable. IMPRESSION: 1. Slow esophageal emptying. Reviewed, dictated and finalized at location A. KEEPER
[2021-10-13 15:42] LABS: Basophils Percent Auto 0.4 % (0.2-1.2); Eosinophils Percent Auto 0.1 % (0-4.4); Hematocrit 46.9 % (42.0-52.0); Immature Granulocyte Absolute 0.02 K/mm3 (0.00-0.031); Immature Granulocyte Percent A 0.3 % (0-0.5); Lymphocytes Absolute Auto 1.54 K/mm3 (0.9-3.2); Lymphocytes Percent Auto 21.1 % (18.3-44.2); Mean Corpuscular HGB Conc 34.1 g/dl (32-36); Mean Corpuscular Hemoglobin 27.6 pg (26-34); Mean Platelet Volume 11.8 fl (7.4-10.4); Monocytes Absolute Auto 0.6 K/mm3 (0.1-0.6); Monocytes Percent Auto 7.7 % (2.6-8.5); Neutrophils Absolute Auto 5.2 K/mm3 (1.3-6.7); Neutrophils Percent Auto 70.4 % (45.5-73.1); Platelet Count Result 322 k/mm3 (150-375); Red Blood Count 5.79 M/mm3 (4.6-6.20); Red Cell Distribution Width 12.9 % (11.5-14.5); White Blood Count 7.3 K/mm3 (4.5-10.0)
[2021-10-13 15:52] LABS: Alanine Aminotransferase 23 U/L (4-50); Albumin Level 4.8 g/dL (3.5-5.1); Alkaline Phosphatase 119 U/L (38-126); Anion Gap 16 mmol/L (8-16); Aspartate Amino Transferase 25 U/L (17-59); Bilirubin,Total 0.8 mg/dL (0.2-1.3); Blood Urea Nitrogen 11 mg/dL (9-20); Calcium 10.3 mg/dL (8.4-10.2); Carbon Dioxide 20 mmol/L (22-30); Chloride 103 mmol/L (98-107); Estimated CRCL calculation 105 ml/min; Estimated Glomerular Filt Rate > 60; Glucose 123 mg/dL (65-110); Lipase 65 U/L (23-300); Potassium 3.5 mmol/L (3.4-5.0); Sodium 139 mmol/L (137-145)
--- NOTE | 2021-10-13 18:05 | ED.GENADULT ---
HPI - General Adult General Chief complaint: Abdominal Pain Stated complaint: abd pain, post op 3 wks Time Seen by Provider: 10/13/21 17:58 Source: RN notes reviewed History of Present Illness HPI narrative: Patient presents emergency department from home for abdominal pain. Patient states symptoms began yesterday pain is located in the mid abdomen described as aching in nature. States is been associate with numerous episodes of nausea vomiting. Denies any diarrhea. Denies any fevers or chills chest pain or shortness of breath. Patient states that he did have hernia repair surgery by Dr. Arthur in mid September is been doing fine up until yesterday Related Data Home Medications Medication Instructions Recorded Confirmed losartan 25 mg PO QAM 05/27/21 10/09/21 valacyclovir 500 mg PO QAM 05/27/21 10/09/21 Allergies Allergy/AdvReac Type Severity Reaction Status Date / Time Penicillins Allergy Unknown Hives Verified 10/07/21 09:21 silicone Allergy Unknown Hives Verified 10/07/21 09:21 Review of Systems Review of Systems: Gen.: Denies fevers or chills ENT: Denies congestion Respiratory: Denies shortness of breath or cough CV: Denies chest pain or palpitations GI: See HPI Musculoskeletal: Denies back pain or muscle pain Neuro: Denies numbness, tingling, weakness or focal weakness Skin: Denies rash Except as documented, all other systems reviewed and negative [facility] Past Medical History Medical History Vizcaino's esophagus without dysplasia Benign essential hypertension BMI 35.0-35.9,adult Gastroesophageal reflux disease with esophagitis Hiatal hernia Smoker Surgical History Surgical History History of esophagogastroduodenoscopy (EGD) History of laparoscopic appendectomy 2003 History of Boaz fundoplication 09/22/21 Social History Social History Smoking packs per day: 0.5 Smoking cigarettes per day: 10.0 Years smoked: 3 Smoking pack-years: 1.50 Smoking status: Current every day smoker Tobacco type: cigarettes Second hand tobacco smoke exposure: No Additional smoking assessment comments: STATES HAS NOT SMOKED SINCE MARCH 2021 - DENIES ALL FORMS OF TOBACCO USE Alcohol intake: former Drinks per week: 6 Alcohol use details: BEERS Substance use: never Substance use type: marijuana Last use: 09/18 Spiritual care concerns: No Exam Narrative: APPEARANCE: No acute distress, nontoxic, resting in bed HEENT: Normocephalic, atraumatic, OMM RESPIRATORY: No respiratory distress, clear to auscultation bilaterally with no rhonchi wheezing or rales CARDIOVASCULAR: RRR s murmur ABDOMINAL: Soft nondistended diffusely tender palpation no rebound or guarding MUSCULOSKELETAl: Moves all extremities. No clubbing, cyanosis or edema. NEURO: Awake and alert. Following commands, speech normal, no focal deficits SKIN:: Warm, dry. Normal Color PSYCHIATRIC: Normal affect/mood Course Course Emergency Course: Discussed with Dr. Arthur presentation work-up agrees admission at this time request patient started on Solu-Medrol Discussed with patient and family results of workup and diagnosis. Discussed need for admission. Patient and family understand and agree to current treatment plan Vital Signs Vital signs: Vital Signs Temperature 96.8 F L 10/13/21 15:17 Pulse Rate 100 10/13/21 15:17 Respiratory Rate 100 H 10/13/21 15:17 Blood Pressure 150/103 H 10/13/21 15:17 Pulse Oximetry 100 10/13/21 15:17 Temperature 96.8 F L 10/13/21 15:17 Pulse Rate 74 10/13/21 18:51 Respiratory Rate 12 10/13/21 18:51 Blood Pressure 160/109 H 10/13/21 22:15 Pulse Oximetry 100 10/13/21 22:16 Medical Decision Making Vital Signs Vital Signs: Vital Signs Temperature 96.8 F L 10/13/21 15:17 Pulse Rate 100 10/13/21 15:17 Respiratory Rate 100 H 10/13/21 15:17 Blood Press
[2021-10-13 18:27] LABS: Add Urine Microscopic? YES; Appearance Urine Clear (Clear); Bacteria Urine Trace /hpf; Bilirubin Urine Negative (Negative); Blood Urine Negative (Negative); Color Urine Yellow (Yellow); Glucose Urine UA Negative (Negative); Ketones Urine 1+ mg/dL (Negative); Leukocyte Esterase Ur Negative LEU/UL (Negative); Mucus Urine Heavy /lpf; Nitrate Urine Negative (Negative); Protein Urine 1+ mg/dL (Negative); RBC Urine 0-2 /hpf (0-2); Specific Grav Ur 1.028 (1.001-1.035); Urobilinogen Urine Negative mg/dL (<2.0)
[2021-10-13] MEDS: ONDANSETRON INJ 4 MG/2 ML VIAL IV PUSH (18:38)
[2021-10-13] MEDS: KETOROLAC 30 MG/ML VIAL (*BKC) IV PUSH (18:38)
[2021-10-13] MEDS: SODIUM CHLORIDE 0.9% IV 1,000 ML 999 ML IV CONT (18:38)
[2021-10-13] MEDS: PROMETHAZINE HCL 25 MG/ML AMPUL 12.5 MG IV PUSH (21:57)
[2021-10-13] MEDS: SODIUM CHLORIDE 0.9% IV 100 ML 999 ML (22:04)
[2021-10-13] MEDS: FAMOTIDINE 20 MG/2 ML VIAL IV PUSH (22:29)
[2021-10-13] MEDS: SODIUM CHLORIDE 0.9% IV 1,000 ML 125 ML IV CONT (22:29)
[2021-10-13] MEDS: MORPHINE SULFATE (*CRX) 4 MG/ML INJ IV PUSH (22:30)
[2021-10-13] MEDS: methylPREDNISolone SOD SUCC 125 MG VIAL IV PUSH (22:30)
--- NOTE | 2021-10-14 01:19 | ADMGEN ---
This patient, Emigdio Luke, was admitted to Medical Room 253-01. Patient/family oriented to hospital policies and general routines including ID bracelet, bed and alarms, visiting hours, pain management, procedures, bathroom and other care routines, personal items, smoking policy, room service/diet, and visiting hours. Information on how to activate the Rapid Response Team has been discussed. Patient/Family are encouraged to report perceived risks to care and to ask questions if they do not understand what they are told or what they should do.
[2021-10-14 01:37] VITALS: BP 118/79; PULSE 73; RESP 16; TEMP 36.3; O2SAT 98; BMI 34.4
[2021-10-14] MEDS: ONDANSETRON INJ 4 MG/2 ML VIAL IV PUSH (01:53)
[2021-10-14 02:52] VITALS: PULSE 73; RESP 16; O2SAT 98
[2021-10-14 05:01] VITALS: BP 110/69; PULSE 63; RESP 16; TEMP 36.4; O2SAT 98
[2021-10-14] MEDS: methylPREDNISolone SOD SUCC 125 MG VIAL 60 MG IV PUSH ×3 (05:46→17:25)
[2021-10-14 05:57] LABS: Basophils Percent Auto 0.2 % (0.2-1.2); Hematocrit 41.4 % (42.0-52.0); Hemoglobin 13.6 g/dL (14.0-18.0); Immature Granulocyte Absolute 0.02 K/mm3 (0.00-0.031); Immature Granulocyte Percent A 0.4 % (0-0.5); Lymphocytes Absolute Auto 0.64 K/mm3 (0.9-3.2); Lymphocytes Percent Auto 12.3 % (18.3-44.2); Mean Corpuscular HGB Conc 32.9 g/dl (32-36); Mean Corpuscular Hemoglobin 27.6 pg (26-34); Mean Corpuscular Volume 84.1 fl (80-100); Mean Platelet Volume 11.6 fl (7.4-10.4); Monocytes Absolute Auto 0.1 K/mm3 (0.1-0.6); Monocytes Percent Auto 1.1 % (2.6-8.5); Neutrophils Absolute Auto 4.5 K/mm3 (1.3-6.7); Platelet Count Result 241 k/mm3 (150-375); Red Blood Count 4.92 M/mm3 (4.6-6.20); Red Cell Distribution Width 13.1 % (11.5-14.5); White Blood Count 5.2 K/mm3 (4.5-10.0)
[2021-10-14 06:13] LABS: Anion Gap 11 mmol/L (8-16); Blood Urea Nitrogen 15 mg/dL (9-20); Calcium 9.3 mg/dL (8.4-10.2); Carbon Dioxide 21 mmol/L (22-30); Chloride 107 mmol/L (98-107); Estimated CRCL calculation 104 ml/min; Estimated Glomerular Filt Rate > 60; Glucose 157 mg/dL (65-110); Potassium 4.5 mmol/L (3.4-5.0); Sodium 139 mmol/L (137-145)
[2021-10-14] MEDS: SODIUM CHLORIDE 0.9% IV 1,000 ML 125 ML IV CONT ×2 (06:42→14:59)
[2021-10-14] MEDS: FAMOTIDINE 20 MG/2 ML VIAL IV PUSH ×2 (08:57→20:41)
[2021-10-14] MEDS: MORPHINE SULFATE (*CRX) 4 MG/ML INJ IV PUSH ×2 (09:56→13:52)
--- NOTE | 2021-10-14 11:04 | PM.IMHP ---
H&P: HPI History of Present Illness Date/Time: 10/14/21 10:04 Chief Complaint: Upper abdominal pain, nausea, and vomiting Narrative: This is a 36-year-old male who is known to our service for having a laparoscopic Boaz fundoplication by Dr. Arthur on 09/22/2021. He is now 4 weeks postop and was seen in our office about 1 week ago. At that time, he was dealing with some tenderness, fatigue, and mild dysphagia, but having no other complaints. This is fairly typical at that time of the healing process. Two days ago, he had an onset of upper abdominal pain that he feels is different than the incisional tenderness he was having. Shortly after, he developed nausea and vomiting. Prior to his onset of symptoms he had eaten fish sticks and peas, but reports paying close attention to chewing his food well. After symptoms started, he followed a clear liquid diet. He states that the vomiting continued and he was unable to keep any liquids down. Due to his persistent symptoms, he presented to the emergency department last night for evaluation. CT scan of the abdomen and pelvis showed some nonspecific edema of the gastroesophageal junction. His labs were unremarkable with a normal white blood cell count. In the ER, he continued to have multiple episodes of vomiting. Therefore, he was admitted to our service, made NPO, and started on IV fluids and IV antiemetics. The patient is now seen on the medical floor this morning. He still feels very nauseated, but has not had any further episodes of vomiting since being admitted to the floor. He is still reporting some epigastric abdominal pain that he feels is unchanged. He is getting relief from the pain with the IV morphine. He denies any blood in his emesis. Reports his bowels are moving normally for him with his last bowel movement yesterday. No other complaints at this time. Review of Systems Review of Systems: All systems reviewed & are unremarkable except as noted in HPI and below Constitutional: Constitutional: Reports as per HPI, Denies chills and Denies fever(s) ENT: Reports system reviewed and no additional complaints, except as documented Cardiovascular: Cardiovascular: Reports no additional cardiovascular complaints, Denies chest pain and Denies leg edema Respiratory: Respiratory: Reports no additional respiratory complaints, Denies cough and Denies dyspnea Gastrointestinal: Gastrointestinal: Reports as per HPI, Reports no additional gastrointestinal complaints, Reports abdominal pain (upper), Denies melena, Denies hematochezia, Denies change in bowel habits, Denies coffee ground emesis, Reports nausea, Reports vomiting and Denies hematemesis Genitourinary: Genitourinary: Denies hematuria and Denies dysuria Integumentary/Breasts: Skin/Breast: Reports system reviewed and no additional complaints, except as docu and Reports other (no complaints or concerns with incisions, no drainage) Neurologic: Reports system reviewed and no additional complaints, except as documented, Denies focal weakness, Denies numbness and Denies tingling Psychiatric: Psychiatric: Denies anxiety and Denies depression [facility] Past Medical History Medical History Vizcaino's esophagus without dysplasia Benign essential hypertension Gastroesophageal reflux disease with esophagitis Hiatal hernia Smoker Surgical History Surgical History (Updated 10/14/21 @ 11:31 by RAMON Alvarez) History of esophagogastroduodenoscopy (EGD) History of laparoscopic appendectomy 2004 History of Boaz fundoplication 09/22/21 Family History Family History Other No pertinent family history Social History Social History Smoking packs per day: 0.5 Smoking cigarettes per day: 10.0 Years smoked: 5 Smoking pack-years: 2.50 Smoking status: Former smoker Tobacco type: cigarettes Second hand tobac
[2021-10-14 14:15] VITALS: BP 128/83; PULSE 70; RESP 16; TEMP 36.6; O2SAT 97
[2021-10-14] MEDS: CALCIUM CARBONATE (TUMS) 500 MG (200 MG ELEMENTAL) PO (20:33)
[2021-10-14] MEDS: ENOXAPARIN 30 MG/0.3 ML SYRINGE SUB-Q (20:41)
[2021-10-14 22:00] VITALS: BP 132/84; PULSE 76; RESP 16; TEMP 37.1; O2SAT 98
[2021-10-15] MEDS: methylPREDNISolone SOD SUCC 125 MG VIAL 60 MG IV PUSH ×4 (01:13→17:16)
[2021-10-15] MEDS: SODIUM CHLORIDE 0.9% IV 1,000 ML 80 ML IV CONT ×2 (01:17→14:37)
[2021-10-15 05:16] VITALS: BP 119/76; PULSE 57; RESP 16; TEMP 36.6; O2SAT 97
[2021-10-15 06:25] LABS: Hemoglobin 12.6 g/dL (14.0-18.0); Mean Corpuscular HGB Conc 33.2 g/dl (32-36); Mean Corpuscular Hemoglobin 27.3 pg (26-34); Mean Corpuscular Volume 82.4 fl (80-100); Mean Platelet Volume 12.4 fl (7.4-10.4); Platelet Count Result 219 k/mm3 (150-375); Red Blood Count 4.61 M/mm3 (4.6-6.20); Red Cell Distribution Width 13.2 % (11.5-14.5); White Blood Count 9.3 K/mm3 (4.5-10.0)
[2021-10-15 06:37] LABS: Anion Gap 7 mmol/L (8-16); Blood Urea Nitrogen 21 mg/dL (9-20); Carbon Dioxide 21 mmol/L (22-30); Chloride 106 mmol/L (98-107); Estimated CRCL calculation 140 ml/min; Estimated Glomerular Filt Rate > 60; Glucose 136 mg/dL (65-110); Potassium 4.1 mmol/L (3.4-5.0); Sodium 134 mmol/L (137-145)
[2021-10-15] MEDS: ENOXAPARIN 30 MG/0.3 ML SYRINGE SUB-Q ×2 (08:44→20:39)
[2021-10-15] MEDS: FAMOTIDINE 20 MG/2 ML VIAL IV PUSH ×2 (08:44→20:39)
[2021-10-15] MEDS: MORPHINE SULFATE (*CRX) 4 MG/ML INJ IV PUSH ×2 (08:50→20:44)
[2021-10-15] MEDS: ONDANSETRON INJ 4 MG/2 ML VIAL IV PUSH (09:45)
--- NOTE | 2021-10-15 11:53 | PM.PNGS ---
Progress Note: A&P Assessment and Plan (1) Intractable nausea and vomiting: Code(s): R11.2 - Nausea with vomiting, unspecified Status: Acute Assessment and Plan: no further vomiting since admitted to the hospital. Nausea is better this morning although he did have some when he 1st awakened today. Esophagram today does show passage of contrast into the stomach. He did not have any emesis associated with this. Will go ahead and try some clear liquids today. (2) Abdominal pain: Code(s): R10.9 - Unspecified abdominal pain Status: Acute Assessment and Plan: Also improved. (3) History of Boaz fundoplication: Code(s): Z98.890 - Other specified postprocedural states Status: Chronic Assessment and Plan: 09/22/2021. By imaging, fundoplication is intact and hiatal hernia repair is intact despite nausea and vomiting. continues on methylprednisolone 60 mg q.6 to reduce swelling associated with the wrap. Subjective Subjective Date/Time Seen: 10/15/21 11:53 Patient reports: pain is less and nausea ( had nausea and pain when he 1st woke up but none since) Interval history: nausea and pain are better. Patient tolerated oral contrast with esophagram without vomiting. Review of Systems Review of Systems: All systems reviewed & are unremarkable except as noted in HPI and below Constitutional: Constitutional: Denies headache(s) Cardiovascular: Cardiovascular: Denies chest pain and Denies dyspnea Respiratory: Respiratory: Denies cough and Denies dyspnea Gastrointestinal: Gastrointestinal: Denies abdominal pain, Denies heartburn, Denies nausea and Denies vomiting Neurologic: Denies confusion and Denies headache(s) Exam Const: General: comfortable and no acute distress; No confusion Orientation/consciousness: patient oriented x3 and No confusion GI: Inspection: non-distended and incision ( Trocar sites healing well) GI Palp: Yes Soft to palpation, Yes Tenderness to palpation present (GI) ( mild tenderness), No Guarding due to palpation present (GI), No Palpable mass present and No Rebound tenderness present Auscultation: normal bowel sounds Neuro: General: patient oriented x3, no focal motor deficits and No confusion Extrem: General: no calf tenderness and no edema Psych: Affect: normal affect Insight: Good insight present (Psych) Judgement: Good judgement present (Psych) Objective Data Vital Signs Vital Signs: Vital Signs - 24 hr 10/14/21 14:15 10/14/21 22:00 10/15/21 05:16 Temperature 36.6 C 37.1 C 36.6 C Pulse Rate 70 76 57 L Respiratory Rate 16 16 16 Blood Pressure 128/83 132/84 119/76 Pulse Oximetry 97 98 97 Intake/Output Intake/Output: Intake & Output 10/12/21 10/13/21 10/14/21 10/15/21 23:59 23:59 23:59 23:59 Intake Total 1100 2220 1100 Output Total 500 700 Balance 1100 1720 400 Meds/Results Medications: Active Medications Generic Name Dose Route Start Last Admin Trade Name Freq PRN Reason Stop Dose Admin Calcium Carbonate 200 mg 10/14/21 20:28 10/14/21 20:33 Calcium Carbonate (Tums) 500 Mg (200 Mg Elemental) PO 200 mg Q6H PRN Administration Indigestion Enoxaparin Sodium 30 mg 10/14/21 21:00 10/15/21 08:44 Enoxaparin 30 Mg/0.3 Ml Syringe SUB-Q 30 mg Q12HR ROSS Administration Famotidine 20 mg 10/14/21 09:00 10/15/21 08:44 Famotidine 20 Mg/2 Ml Vial IV PUSH 20 mg Q12HR ROSS Administration Sodium Chloride 1,000 mls @ 80 mls/hr 10/13/21 22:15 10/15/21 01:17 Normal Saline Iv IV CONT 80 mls/hr .[id number] ROSS Administration Methylprednisolone Sodium Succinate 60 mg 10/14/21 06:00 10/15/21 05:24 Methylprednisolone Sod Succ 125 Mg Vial IV PUSH 60 mg Q6HR ROSS Administration Morphine Sulfate 4 mg 10/13/21 22:15 10/15/21 08:50 Morphine Sulfate (*Crx) 4 Mg/Ml Inj IV PUSH 4 mg Q2H PRN Administration Pain Rated 7-10 Ondansetron HCl 4 mg 10/13/21 22:15 10/06
[2021-10-15 14:00] VITALS: BP 130/82; PULSE 64; RESP 16; TEMP 36.6; O2SAT 98
[2021-10-15 22:00] VITALS: BP 124/74; PULSE 58; RESP 18; TEMP 36.6; O2SAT 94
[2021-10-16] MEDS: methylPREDNISolone SOD SUCC 125 MG VIAL 60 MG IV PUSH ×5 (00:16→23:35)
[2021-10-16] MEDS: SODIUM CHLORIDE 0.9% IV 1,000 ML 80 ML IV CONT ×2 (03:15→15:37)
[2021-10-16] MEDS: MORPHINE SULFATE (*CRX) 4 MG/ML INJ IV PUSH ×4 (05:33→23:44)
[2021-10-16 05:55] VITALS: BP 122/75; PULSE 51; RESP 16; TEMP 36.9; O2SAT 95
[2021-10-16] MEDS: ENOXAPARIN 30 MG/0.3 ML SYRINGE SUB-Q ×2 (08:13→23:35)
[2021-10-16] MEDS: FAMOTIDINE 20 MG/2 ML VIAL IV PUSH ×2 (08:13→23:35)
[2021-10-16 14:10] VITALS: BP 130/87; PULSE 51; RESP 16; TEMP 36.6; O2SAT 98
--- NOTE | 2021-10-16 17:00 | PM.PNGS ---
Progress Note: A&P Assessment and Plan (1) Intractable nausea and vomiting: Code(s): R11.2 - Nausea with vomiting, unspecified Status: Acute Assessment and Plan: He has had no further vomiting since admitted to the hospital. Nausea is better today. Esophagram showed passage of contrast into the stomach. He did not have any emesis associated with this or since the study. Will go ahead and adv to full liquids for tomorrow AM. Will order some Tylenol w codeine elixir to have him try for the 4-6 level pain he has. (2) Abdominal pain: Code(s): R10.9 - Unspecified abdominal pain Status: Acute Assessment and Plan: Also improved. (3) History of Boaz fundoplication: Code(s): Z98.890 - Other specified postprocedural states Status: Chronic Assessment and Plan: 09/22/2021. By imaging, fundoplication is intact and hiatal hernia repair is intact despite nausea and vomiting. continues on methylprednisolone 60 mg q.6 to reduce swelling associated with the wrap. Subjective Subjective Date/Time Seen: 10/16/21 17:00 Post Op day: 3 weeks po Patient reports: feels better Interval history: Pt states he is still occasionally having some deep upper abdominal discomfort. The IV pain med usually helps this. Patient is tolerating clears. No vomiting in the last 24 hours. Review of Systems Review of Systems: All systems reviewed & are unremarkable except as noted in HPI and below Gastrointestinal: Gastrointestinal: Reports as per HPI, Reports abdominal pain ( Mid upper abdomen) and Denies belching Comments: has had a couple loose stools Exam Const: General: comfortable, no acute distress, alert and awake; No confusion Nutritional Appearance: overweight Orientation/consciousness: patient oriented x3 and No confusion HENMT: Head: normocephalic and atraumatic Ears: hearing grossly normal bilaterally Mouth: Yes moist mucous membranes Eyes: General: appearance normal, both eyes and all related structures Sclera: sclerae normal EOM: EOMs intact bilaterally Neck: Neck: normal visual inspection and full ROM Resp: Effort & Inspection: able to speak in complete sentences and no respiratory distress Auscultation: clear to auscultation bilaterally Cardio: Rate: regular rate Rhythm: regular rhythm Heart sounds: S1 normal heart sound present and S2 normal heart sound present GI: Inspection: normal to inspection, non-distended and incision ( Trocar sites healing well) Auscultation: normal bowel sounds Rectal Exam: deferred : General: Yes no CVA tenderness Back/Spine/Pelvis: Back: no CVA tenderness Skin: General skin exam: normal color Neuro: General: patient oriented x3, moves all extremities, no focal motor deficits and No confusion Cranial nerves: Yes CN's II-XII intact bilaterally Speech: normal speech Motor exam (neuro): 5/5 motor strength present throughout Extrem: General: normal to inspection, no clubbing, cyanosis or edema, no calf tenderness and no edema Psych: Mental Status: mental status grossly normal Affect: normal affect Attitude: cooperative Insight: Good insight present (Psych) Judgement: Good judgement present (Psych) Objective Data Vital Signs Vital Signs: Vital Signs - 24 hr 10/15/21 22:00 10/16/21 05:55 10/16/21 14:10 Temperature 36.6 C 36.9 C 36.6 C Pulse Rate 58 L 51 L 51 L Respiratory Rate 18 16 16 Blood Pressure 124/74 122/75 130/87 Pulse Oximetry 94 95 98 Intake/Output Intake/Output: Intake & Output 10/13/21 10/14/21 10/15/21 10/16/21 23:59 23:59 23:59 23:59 Intake Total 1100 2220 2908 3550 Output Total 500 1100 Balance 1100 1720 1808 3550 Meds/Results Medications: Active Medications Generic Name Dose Route Start Last Admin Trade Name Freq PRN Reason Stop Dose Admin Calcium Carbonate 200 mg 10/14/21 20:28 10/14/21 20:33 Calcium Carbonate (Tums) 500 Mg (200 Mg Elemental) PO 200 mg Q6H PRN Adminis
[2021-10-16 22:00] VITALS: BP 117/68; PULSE 54; RESP 14; TEMP 36.2; O2SAT 97
[2021-10-17] MEDS: SODIUM CHLORIDE 0.9% IV 1,000 ML 80 ML IV CONT (04:07)
[2021-10-17 05:21] VITALS: BP 112/81; PULSE 58; RESP 14; TEMP 36.1; O2SAT 97
[2021-10-17] MEDS: methylPREDNISolone SOD SUCC 125 MG VIAL 60 MG IV PUSH ×4 (06:56→23:31)
[2021-10-17] MEDS: MORPHINE SULFATE (*CRX) 4 MG/ML INJ IV PUSH ×4 (08:15→23:34)
[2021-10-17] MEDS: ENOXAPARIN 30 MG/0.3 ML SYRINGE SUB-Q ×2 (08:16→20:05)
[2021-10-17] MEDS: FAMOTIDINE 20 MG/2 ML VIAL IV PUSH (08:16)
[2021-10-17] MEDS: ACETAMINOPHEN/CODEINE ELIXIR (*CRX) 120-12 MG/5 ML UDC 10 ML PO (11:56)
[2021-10-17 14:45] VITALS: BP 139/92; PULSE 65; RESP 16; TEMP 36.5; O2SAT 99
--- NOTE | 2021-10-17 17:52 | PM.PNGS ---
Progress Note: A&P Assessment and Plan (1) Intractable nausea and vomiting: Code(s): R11.2 - Nausea with vomiting, unspecified Status: Acute Assessment and Plan: He has had no further vomiting since admitted to the hospital. Nausea is better today. Pain is also somewhat decreased today in the epigastric area. Esophagram showed passage of contrast into the stomach. He did not have any emesis associated with this or since the study. patient successfully adv to full liquids for the last 12 hours. He has tried successfully some Tylenol w codeine elixir for the 4-6 level pain he has. (2) Abdominal pain: Code(s): R10.9 - Unspecified abdominal pain Status: Acute Assessment and Plan: Also improved. (3) History of Boaz fundoplication: Code(s): Z98.890 - Other specified postprocedural states Status: Chronic Assessment and Plan: 09/22/2021. By imaging, fundoplication is intact and hiatal hernia repair is intact despite nausea and vomiting. continues on methylprednisolone 60 mg q.6 to reduce swelling associated with the wrap. Additional Plan will change his Pepcid to p.o. now these wallowing well with less pain Will advance his diet for breakfast tomorrow to soft Heart Heart Healthy. Subjective Subjective Date/Time Seen: 10/17/21 16:52 Patient reports: feels better Interval history: patient states his pain is improving. He has tried the Tylenol with codeine elixir po successfully. He has been less nauseated today when the pain does come. He was tolerating a full liquid supper when I saw him. Review of Systems Review of Systems: All systems reviewed & are unremarkable except as noted in HPI and below ENT: Reports system reviewed and no additional complaints, except as documented and Denies headache(s) Cardiovascular: Cardiovascular: Reports no additional cardiovascular complaints, Denies chest pain, Denies leg edema and Denies dyspnea Respiratory: Respiratory: Reports no additional respiratory complaints, Denies cough and Denies dyspnea Gastrointestinal: Gastrointestinal: Reports as per HPI, Reports no additional gastrointestinal complaints, Reports abdominal pain ( Mid upper abdomen), Denies belching, Denies melena, Denies hematochezia, Denies change in bowel habits, Denies coffee ground emesis, Denies heartburn, Denies nausea, Denies vomiting and Denies hematemesis Neurologic: Reports system reviewed and no additional complaints, except as documented, Denies confusion, Denies headache(s), Denies focal weakness, Denies numbness and Denies tingling Psychiatric: Psychiatric: Denies anxiety, Denies confusion and Denies depression Exam Const: General: comfortable, no acute distress, alert and awake; No confusion Nutritional Appearance: overweight Orientation/consciousness: patient oriented x3 and No confusion HENMT: Head: normocephalic and atraumatic Ears: hearing grossly normal bilaterally Mouth: Yes moist mucous membranes Eyes: General: appearance normal, both eyes and all related structures Sclera: sclerae normal EOM: EOMs intact bilaterally Neck: Neck: normal visual inspection and full ROM Resp: Effort & Inspection: able to speak in complete sentences and no respiratory distress Auscultation: clear to auscultation bilaterally Cardio: Rate: regular rate Rhythm: regular rhythm Heart sounds: S1 normal heart sound present and S2 normal heart sound present GI: Inspection: normal to inspection, non-distended and incision ( Trocar sites healing well) Auscultation: normal bowel sounds Rectal Exam: deferred : General: Yes no CVA tenderness Back/Spine/Pelvis: Back: no CVA tenderness Skin: General skin exam: normal color Neuro: General: patient oriented x3, moves all extremities, no focal motor deficits and No confusion Cranial nerves: Yes CN's II-XII intact bilaterally Speech: normal speech Motor exam (neuro): 5/5 motor strength present throughout
[2021-10-17 20:00] VITALS: PULSE 58; RESP 20; O2SAT 98
[2021-10-17] MEDS: FAMOTIDINE 20 MG TABLET PO (20:05)
[2021-10-17 22:00] VITALS: BP 138/87; PULSE 58; RESP 20; TEMP 36.2; O2SAT 98
[2021-10-18] MEDS: MORPHINE SULFATE (*CRX) 4 MG/ML INJ IV PUSH ×2 (03:43→14:08)
[2021-10-18] MEDS: methylPREDNISolone SOD SUCC 125 MG VIAL 60 MG IV PUSH (05:21)
[2021-10-18 06:00] VITALS: BP 113/77; PULSE 61; RESP 20; TEMP 36.5; O2SAT 98
[2021-10-18] MEDS: ACETAMINOPHEN/CODEINE ELIXIR (*CRX) 120-12 MG/5 ML UDC 10 ML PO (10:13)
[2021-10-18] MEDS: ENOXAPARIN 30 MG/0.3 ML SYRINGE SUB-Q (10:13)
[2021-10-18] MEDS: FAMOTIDINE 20 MG TABLET PO (10:14)
--- NOTE | 2021-10-18 13:22 | PM.DS ---
DS: Admitting Diagnosis Discharge Date 10/18/2021 Admitting Diagnosis abdominal pain, nausea and vomiting history laparoscopic Boaz fundoplication 09/22/2021 smoker DS: Discharge Diagnosis Discharge Diagnosis (1) Intractable nausea and vomiting: Code(s): R11.2 - Nausea with vomiting, unspecified Status: Acute Assessment and Plan: resolved with essentially supportive treatment, possibly due to gastroenteritis of a severe nature following fundoplication. (2) Abdominal pain: Code(s): R10.9 - Unspecified abdominal pain Status: Acute Assessment and Plan: most likely due to gastroenteritis in postoperative period. No evidence of complication of fundoplication by imaging. (3) History of Boaz fundoplication: Code(s): Z98.890 - Other specified postprocedural states Status: Chronic Assessment and Plan: 09/22/2021. Patient had been doing well following fundoplication until abrupt onset of nausea vomiting and abdominal pain. CT scan as well as esophagram both showed the fundoplication and hiatal hernia repair to be intact. Esophagram showed only slow passage of contrast beyond the hiatal hernia repair which is expected. (4) BMI 34.0-34.9,adult: Code(s): Z68.34 - Body mass index [BMI] 34.0-34.9, adult Status: Chronic (5) Smoker: Code(s): F17.200 - Nicotine dependence, unspecified, uncomplicated Status: Chronic (6) Vizcaino's esophagus without dysplasia: Code(s): K22.70 - Vizcaino's esophagus without dysplasia Status: Chronic DS: Summary Hospital Course Hospital Course: Patient presented to the emergency room on the day of admission 10/14/2021 with intractable nausea vomiting and upper midline abdominal pain. His Boaz fundoplication had been done on 09/22/2021. He had been doing well with that and had been seen in the office for a postop visit less than a week before his presentation in the emergency room. He reports he had eaten fish sticks and some peas prior to the onset of his symptoms. Others in his family ate the same food and did not have any symptoms. He had intractable nausea and vomiting with abdominal pain and came to the emergency room. Although he improved with fluids, he continued to have vomiting and was admitted. Initial CT scan showed some swelling of the fundoplication but no other problems. He was started on steroids to reduce the swelling. He slowly improved and was able to start on clear liquids 2 days ago. He tolerated these well and was slowly advanced to a soft diet. He is tolerating a soft diet well on the day of discharge 10/18/2021. His abdominal pain is gone. Bowel function has returned. He is much improved and is discharged at this time. Most likely diagnosis is gastroenteritis with subsequent nausea and vomiting. Status at Discharge Functional status at discharge: independent ambulation Overall status at discharge: patient is progressing back to baseline Time Spent with Patient Time attestation: Total time spent providing and/or coordinating discharge services: Exam Const: General: comfortable and no acute distress; No confusion Orientation/consciousness: patient oriented x3 and No confusion Resp: Effort & Inspection: normal respiratory effort Auscultation: clear to auscultation bilaterally Cardio: Rate: regular rate Rhythm: regular rhythm GI: Inspection: non-distended, incision ( All incisions healing well) and obesity GI Palp: Yes Soft to palpation, Yes Tenderness to palpation present (GI) ( minimal tenderness.), No Guarding due to palpation present (GI) and No Rebound tenderness present Auscultation: normal bowel sounds Neuro: General: patient oriented x3, no focal motor deficits and No confusion Extrem: General: no calf tenderness and no edema Psych: Affect: normal affect Insight: Good insight present (Psych) Judgement: Good judgement present (Psych) Discharge Plan Dischar
== END 2021-10-18 15:35 | disposition home or self-care (01) | DRG 392 ==
LOC: ANHED 22:29 → ANH2MED 10-14 01:00
PROVIDERS: Emergency Medicine; Nurse Practitioner Family; Admitting Provider Surgery; Emergency Provider Emergency Medicine; PCP Physician Assistant; Visit Provider Surgery
DX: K52.9 Noninfective gastroenteritis and colitis, unspecified (principal); K22.70 Barrett's esophagus without dysplasia; I10 Essential (primary) hypertension; Z79.899 Other long term (current) drug therapy; Z87.891 Personal history of nicotine dependence; Z98.890 Other specified postprocedural states
CPT/HCPCS: 36415; 74177; 74240; 80048; 80053; 81001; 83690; 85025; 85027; 96361; 96372; 96374; 96375; 96376; 99285; A9270; G0378; J0131; J1650; J1885; J2270; J2405; J2550; J2930; J7030; Q9967

== ENCOUNTER 2022-02-24 15:14 | Observation (INO) | payer BC, SELFPAY ==
--- NOTE | ~2022-02-24 | CT_ITS ---
EXAMINATION: CT abdomen pelvis w con INDICATION: Epigastric pain TECHNIQUE: Computed tomographic images of the abdomen and pelvis were obtained after the administrati on of 100 cc of Omnipaque 350 intravenous contrast. The dose-length product (DLP) was 609.04 mGy-cm. Automated exposure control and iterative reconstruction technique were employed. COMPARISON: 10/13/2021 FINDINGS: The lung bases are clear. The heart size is normal. The liver, spleen, pancreas, gallbladde r, and adrenal glands are normal. The left kidney is absent. The right kidney is unremarkable. No pat hologically enlarged abdominal or pelvic lymph nodes are identified. There is no free intraperitoneal gas or evidence of bowel obstruction. There appear to be changes of appendectomy. IMPRESSION: 1. No CT correlate for the patient's symptoms. Reviewed, dictated and finalized at location F.
--- NOTE | ~2022-02-24 | US_ITS ---
EXAMINATION: US right upper quadrant DATE: 02/24/2022 17:32 INDICATION: Abdominal pain and vomiting TECHNIQUE: Multiple grayscale and Doppler ultrasound images of the abdomen were obtained. COMPARISON: None available FINDINGS: Bowel gas obscures visualization of the pancreas. The liver is normal with normal echogenic ity and echotexture. No surface nodularity. Normal hepatopetal flow in the main portal vein. The gall bladder is normal with no abnormal wall thickening, pericholecystic fluid or stones. The normal commo n bile duct measures 4 mm. Sonographic Jay sign is positive. IMPRESSION: 1. Normal sonographic study of the gallbladder. Positive sonographic Jay sign is of unclear signif icance given the otherwise normal examination. Reviewed, dictated and finalized at location F. IMPRESSION: 1. Normal sonographic study of the gallbladder. Positive sonographic Jay sig n is of unclear significance given the otherwise normal examination.
[2022-02-24 15:24] VITALS: BP 156/111; PULSE 106; RESP 18; TEMP 36.6; O2SAT 100
[2022-02-24 15:51] VITALS: BP 163/103; PULSE 88; RESP 18; O2SAT 98
[2022-02-24 15:53] LABS: Basophils Percent Auto 0.4 % (0.2-1.2); Eosinophils Percent Auto 0.1 % (0-4.4); Hematocrit 47.9 % (42.0-52.0); Hemoglobin 16.5 g/dL (14.0-18.0); Immature Granulocyte Absolute 0.03 K/mm3 (0.00-0.031); Immature Granulocyte Percent A 0.4 % (0-0.5); Lymphocytes Absolute Auto 1.45 K/mm3 (0.9-3.2); Lymphocytes Percent Auto 18.9 % (18.3-44.2); Mean Corpuscular HGB Conc 34.4 g/dl (32-36); Mean Corpuscular Hemoglobin 28.3 pg (26-34); Mean Platelet Volume 11.6 fl (7.4-10.4); Monocytes Absolute Auto 0.5 K/mm3 (0.1-0.6); Monocytes Percent Auto 6.1 % (2.6-8.5); Neutrophils Absolute Auto 5.7 K/mm3 (1.3-6.7); Neutrophils Percent Auto 74.1 % (45.5-73.1); Platelet Count Result 256 k/mm3 (150-375); Red Blood Count 5.84 M/mm3 (4.6-6.20); Red Cell Distribution Width 13.2 % (11.5-14.5); White Blood Count 7.7 K/mm3 (4.5-10.0)
[2022-02-24 16:08] LABS: Alanine Aminotransferase 20 U/L (4-50); Albumin Level 5.1 g/dL (3.5-5.1); Alkaline Phosphatase 101 U/L (38-126); Anion Gap 14 mmol/L (8-16); Aspartate Amino Transferase 28 U/L (17-59); Bilirubin,Total 0.9 mg/dL (0.2-1.3); Blood Urea Nitrogen 15 mg/dL (9-20); Calcium 9.8 mg/dL (8.4-10.2); Carbon Dioxide 19 mmol/L (22-30); Chloride 105 mmol/L (98-107); Estimated CRCL calculation 132 ml/min; Estimated Glomerular Filt Rate > 60; Glucose 126 mg/dL (65-110); Lipase 554 U/L (23-300); Potassium 3.4 mmol/L (3.4-5.0); Sodium 138 mmol/L (137-145)
[2022-02-24] MEDS: ONDANSETRON INJ 4 MG/2 ML VIAL IV PUSH ×2 (17:08→23:09)
[2022-02-24] MEDS: SODIUM CHLORIDE 0.9% IV 1,000 ML 999 ML IV CONT ×2 (17:08→19:55)
--- NOTE | 2022-02-24 18:30 | PC.NURSE ---
ERP aware of need for additional nausea meds.
[2022-02-24 19:10] VITALS: BP 171/108; PULSE 78; RESP 18; O2SAT 98
[2022-02-24 19:36] LABS: Appearance Urine Clear (Clear); Bilirubin Urine Negative (Negative); Blood Urine Negative (Negative); Color Urine Yellow (Yellow); Glucose Urine UA Negative (Negative); Ketones Urine 4+ mg/dL (Negative); Leukocyte Esterase Ur Negative LEU/UL (Negative); Nitrate Urine Negative (Negative); Protein Urine Negative (Negative); Specific Grav Ur 1.025 (1.001-1.035); Urobilinogen Urine 0.2 mg/dL (<2.0)
[2022-02-24 19:45] LABS: Add Urine Microscopic? YES; Bacteria Urine Trace /hpf; Mucus Urine Rare /lpf; RBC Urine 0-2 /hpf (0-2); WBC Urine 0-3 /hpf
[2022-02-24] MEDS: PROMETHAZINE HCL 25 MG/ML AMPUL 12.5 MG IV PUSH (19:54)
--- NOTE | 2022-02-24 20:03 | PC.NURSE ---
Pt medicated per ERP order. Lights dimmed for comfort.
--- NOTE | 2022-02-24 20:38 | ED.NAVMDI ---
HPI - Nausea/Vomiting/Diarrhea General Chief complaint: Nausea/Vomiting/Diarrhea Stated complaint: vomiting Time Seen by Provider: 02/24/22 16:20 History of Present Illness HPI Narrative: Patient is a 36-year-old male who presents ER with nausea vomiting diarrhea. Began this morning. No improvement with home medications. No fevers. He has had some chills and sweats. No known sick contacts. No blood in stool or vomit. Has history of Boaz fundoplication. Has had some intractable vomiting in the past. No history of kidney stones. No urinary frequency urgency or dysuria. Related Data Home Medications Medication Instructions Recorded Confirmed losartan 25 mg PO QAM 05/27/21 02/24/22 valacyclovir 500 mg PO QAM 05/27/21 02/24/22 Allergies Allergy/AdvReac Type Severity Reaction Status Date / Time Penicillins Allergy Unknown Hives Verified 01/27/22 16:28 silicone Allergy Unknown Hives Verified 01/27/22 16:28 Review of Systems Review of Systems: All systems reviewed & are unremarkable except as noted in HPI and below Constitutional: Constitutional: Reports chills, Denies fatigue and Denies fever(s) ENT: Denies nasal congestion and Denies sore throat Cardiovascular: Cardiovascular: Denies chest pain, Denies rapid heart rate and Denies radiating jaw, neck or arm pain Respiratory: Respiratory: Denies cough and Denies dyspnea Gastrointestinal: Gastrointestinal: Reports abdominal pain, Reports bloating, Denies constipation, Reports diarrhea, Reports nausea and Reports vomiting Genitourinary: Genitourinary: Denies dysuria and Denies urinary frequency [facility] Past Medical History Medical History Vizcaino's esophagus without dysplasia Benign essential hypertension Gastroesophageal reflux disease with esophagitis Hiatal hernia Smoker Surgical History Surgical History History of esophagogastroduodenoscopy (EGD) History of laparoscopic appendectomy 2003 History of Boaz fundoplication 09/22/21 Family History Family History Other No pertinent family history Social History Social History Smoking packs per day: 0.5 Smoking cigarettes per day: 10.0 Years smoked: 5 Smoking pack-years: 2.50 Tobacco type: cigarettes Second hand tobacco smoke exposure: No Additional smoking assessment comments: 1/2 pack a day Alcohol intake: former Drinks per week: 6 Alcohol use details: BEERS Substance use: never Substance use type: marijuana Last use: 09/18 Spiritual care concerns: No Exam Narrative: GENERAL: Uncomfortable-appearing, well-nourished, and in mild distress. HEAD: Normocephalic, atraumatic. ENT: Mucous membranes moist. CHEST: Clear to auscultation. No respiratory distress. HEART: Regular rate and rhythm. Normal peripheral pulses. ABDOMEN: Soft, mild diffuse discomfort worse in the epigastrium without guarding or rebound, nondistended, normal active bowel sounds. EXTREMITIES: Normal range of motion. No edema. SKIN: Warm, dry, no rash. NEURO: Alert and oriented x3. PSYCH: Normal mood and affect. Course Reevaluation(s) Reevaluation #1: Modest improvement with Zofran and Phenergan. Will attempt p.o. challenge. Patient still feels cramping of the abdomen. Receiving second liter of fluid. Date: 02/24/22 Time: 20:44 Reevaluation #2: Patient unable to tolerate oral intake. We will plan observation in the hospital. Date: 02/24/22 Time: 21:07 Vital Signs Vital signs: Vital Signs Temperature 97.8 F 02/24/22 15:24 Pulse Rate 106 H 02/24/22 15:24 Respiratory Rate 18 02/24/22 15:24 Blood Pressure 156/111 H 02/24/22 15:24 Pulse Oximetry 100 02/24/22 15:24 Temperature 97.8 F 02/24/22 15:24 Pulse Rate 78 02/24/22 22:10 Respiratory Rate 18 02/24/22 22:10 Blood Pressure 172/98 H 02/24/22 2
--- NOTE | 2022-02-24 21:07 | PC.NURSE ---
pt reports dry heaving after PO challenge
[2022-02-24 21:21] VITALS: BP 173/103; PULSE 71; RESP 18; O2SAT 98
[2022-02-24 22:10] VITALS: BP 172/98; PULSE 78; RESP 18; O2SAT 98
--- NOTE | 2022-02-24 23:00 | ADMGEN ---
This patient, Emigdio Luke, was admitted to Medical Room 342-01. Patient/family oriented to hospital policies and general routines including ID bracelet, bed and alarms, visiting hours, pain management, procedures, bathroom and other care routines, personal items, smoking policy, room service/diet, and visiting hours. Information on how to activate the Rapid Response Team has been discussed. Patient/Family are encouraged to report perceived risks to care and to ask questions if they do not understand what they are told or what they should do.
[2022-02-24] MEDS: DEXTROSE 5%/LACTATED RINGERS 1,000 ML 150 ML IV CONT (23:06)
[2022-02-24] MEDS: hydrALAZINE HCL 20 MG/ML VIAL 10 MG IV PUSH (23:26)
--- NOTE | 2022-02-24 23:26 | PM.IMHP ---
H&P: HPI History of Present Illness Date/Time: 02/24/22 23:26 Chief Complaint: Nausea, vomiting and diarrhea Narrative: 36-year-old male with past medical history of hypertension, hiatal hernia and reflux esophagitis status post Boaz fundoplication September 2021 who presented to the ER with intractable nausea, vomiting and diarrhea. The patient reported that he woke up having diarrhea. His diarrhea was shortly thereafter followed by nausea and was having dry heaves. He has had history of a Boaz fundoplication and is unable to really vomit. He has been having generalized abdominal cramping. He has been unable to tolerate even sips of liquid without continue dry heaves. He denies any known fevers. Has been having some chills and feeling flushed. He has had similar symptoms in the past back after he had his initial fundoplication in September 2019. He denies any recent ill contacts, recent travel or exposure to potentially contaminated food. He received Zofran and Phenergan in the ER with only minimal improvement in his symptoms. Patient attempted p.o. challenge but was having cramping abdominal pain and dry heaves. He received 2 L of isotonic fluids in the ER. He has not had any further diarrhea since admission. Reports only feeling mildly improved at this time and is restless in bed. He denies any dysuria, hematuria or changes in urinary frequency. He denies any cough or congestion. He denies any ill contacts. The patient was unable to tolerate oral intake and did not take his home antihypertensive medications this morning. The patient's blood pressures in the ER were elevated between 150-170 range systolic. Review of Systems Review of Systems: 12 systems were reviewed with pertinent positives and negatives per HPI. Except as documented in the HPI, all other systems were reviewed and are negative. [facility] Past Medical History Medical History (Updated 02/25/22 @ 04:23 by Cindy Steinberg DO) Vizcaino's esophagus without dysplasia Benign essential hypertension Flat feet, bilateral Gastroesophageal reflux disease with esophagitis Hiatal hernia Smoker Unilateral congenital absence of kidney Congenital absence of left kidney Surgical History Surgical History (Updated 02/25/22 @ 04:23 by Cindy Steinberg DO) History of esophagogastroduodenoscopy (EGD) History of laparoscopic appendectomy (~2003) History of Boaz fundoplication (11/17/21) Family History Family History Father Atrial fibrillation Social History Social History (Updated 02/25/22 @ 04:21 by Cindy Steinberg DO) Smoking packs per day: 0.5 Smoking cigarettes per day: 10.0 Years smoked: 5 Smoking pack-years: 2.50 Smoking status: Former smoker Tobacco type: cigarettes Second hand tobacco smoke exposure: No Alcohol intake: current Drinks per week: 3 Alcohol use details: BEERS Substance use: never Substance use type: does not use Last use: 09/18 Spiritual care concerns: No Meds Home Medications and Allergies Home Medications Medication Instructions Recorded Confirmed Type losartan 25 mg PO QAM 05/27/21 02/24/22 History valacyclovir 500 mg PO QAM 05/27/21 02/24/22 History Allergies Allergy/AdvReac Type Severity Reaction Status Date / Time Penicillins Allergy Unknown Hives Verified 01/27/22 16:28 silicone Allergy Unknown Hives Verified 01/27/22 16:28 gluten Allergy Unknown Verified 02/24/22 23:32 Vital Signs Vital Signs - 24 hr 02/24/22 15:24 02/24/22 15:51 02/24/22 19:10 Temperature 97.8 F Pulse Rate 106 H 88 78 Respiratory Rate 18 18 18 Blood Pressure 156/111 H 163/103 H 171/108 H Pulse Oximetry 100 98 98 02/24/22 21:21 02/24/22 22:10 Temperature Pulse Rate 71 78 Respiratory Rate 18 18 Blood Pressure 173/103 H 172/98 H Pulse Oximetry 98 98 Exam Narrative: PHYSICAL EXAM: WEIGHT 96 kg BMI 30.4 General: Mildly ill-appear
[2022-02-24 23:29] VITALS: BP 172/110; PULSE 67; RESP 20; TEMP 36.9; O2SAT 100
[2022-02-25] MEDS: PROMETHAZINE HCL 25 MG/ML AMPUL IM ×3 (00:03→12:20)
[2022-02-25 00:11] VITALS: BP 160/90
[2022-02-25] MEDS: DEXTROSE 5%/LACTATED RINGERS 1,000 ML 150 ML IV CONT ×3 (06:03→19:23)
[2022-02-25 06:34] VITALS: BP 150/90; PULSE 80; TEMP 37.3; O2SAT 100
[2022-02-25 07:21] LABS: Anion Gap 6 mmol/L (8-16); Blood Urea Nitrogen 8 mg/dL (9-20); Carbon Dioxide 25 mmol/L (22-30); Chloride 108 mmol/L (98-107); Estimated CRCL calculation 132 ml/min; Estimated Glomerular Filt Rate > 60; Glucose 122 mg/dL (65-110); Potassium 4.1 mmol/L (3.4-5.0); Sodium 139 mmol/L (137-145)
[2022-02-25] MEDS: ONDANSETRON INJ 4 MG/2 ML VIAL IV PUSH (08:04)
[2022-02-25 08:05] VITALS: BP 139/93; PULSE 77; RESP 18; TEMP 36.9; O2SAT 100
[2022-02-25] MEDS: LOSARTAN POTASSIUM 25 MG TABLET PO (08:05)
[2022-02-25] MEDS: PANTOPRAZOLE SODIUM IV 40 MG VIAL IV PUSH (08:05)
[2022-02-25] MEDS: valACYclovir HCL 500 MG TABLET PO (08:05)
[2022-02-25 09:53] LABS: Amphetamine Screen Urine Negative (Negative); Barbiturate Screen Urine Negative (Negative); Benzodiazepines Screen Urine Negative (Negative); Cannabinoid Screen Urine Positive (Negative); Cocaine Screen Urine Negative (Negative); Methadone Screen Urine Negative (Negative); Opiate Screen Urine Negative (Negative); Phencyclidine Screen Urine Negative (Negative)
[2022-02-25 11:08] VITALS: BMI 30.3
[2022-02-25 12:00] VITALS: BP 139/92; PULSE 77; RESP 16; TEMP 37.1; O2SAT 100
--- NOTE | 2022-02-25 12:18 | PM.IMPN ---
Progress Note: A&P Assessment and Plan (1) Dehydration: Code(s): E86.0 - Dehydration Status: Acute Assessment and Plan: Patient had received 2 L of normal saline in the emergency department with continuation of IV fluids on medical floor. Continue to monitor renal function and fluid volume status Continue D5 with LR at 150 mL an hour, repeat BMP in the morning Monitor strict I&Os Patient was placed on Protonix for GI prophylaxis. P.r.n. Zofran and Phenergan as needed for nausea P.r.n. pain medications (2) Gastroenteritis: Code(s): K52.9 - Noninfective gastroenteritis and colitis, unspecified Status: Acute Assessment and Plan: Patient denies any food consumption and the ordinary and recent travel. Patient does endorse marijuana usage which may have induced intractable nausea and vomiting, consider cannabinoid hyper emesis (3) Benign essential hypertension: Code(s): I10 - Essential (primary) hypertension Status: Chronic Assessment and Plan: P.r.n. hydralazine for systolic greater than 160, notified the clinician prior to administration (4) Gastroesophageal reflux disease with esophagitis: Qualifiers: Esophagitis bleeding: without hemorrhage Qualified Code(s): K21.00 - Gastro-esophageal reflux disease with esophagitis, without bleeding Code(s): K21.00 - Gastro-esophageal reflux disease with esophagitis, without bleeding Status: Chronic Assessment and Plan: Protonix 40 mg oral daily (5) Abnormal urine: Code(s): R82.90 - Unspecified abnormal findings in urine Status: Acute Assessment and Plan: Monitor renal function and urinary output 4+ urine ketones found an urinalysis Subjective Date/time seen: 02/25/22 12:18 Patient was evaluated this morning at bedside. He was sleeping easily arousable to verbal stimuli. During our discussion, the patient reported that he uses marijuana intermittently. He also reports that he had mesh placement for hiatal hernia in September of last year and since then he has had 2 episodes of intractable nausea and vomiting. However he did not correlate them with marijuana usage. Patient denies any bowel changes or bladder changes. He has not had an episode of emesis of 10:00 a.m. this morning. Discussed cessation of marijuana usage. Continue to provide antiemetics and IV fluids. Review of Systems Review of Systems: All systems reviewed & are unremarkable except as noted in HPI and below Exam Narrative: PHYSICAL EXAM: WEIGHT 96 kg BMI 30.4 General: Mildly ill-appearing, well-developed well-nourished HEENT: Mucous membranes are tacky, no oral pharyngeal erythema, no scleral icterus, no conjunctival pallor, pupils are equal and reactive Respiratory: Clear to auscultation bilaterally, no increased work of breathing Cardiovascular: Regular rate, regular rhythm, 2+ bilateral radial pedal pulses Gastrointestinal: Soft, nontender to palpation, nondistended, normoactive bowel sounds Skin: Warm to touch, non jaundice Musculoskeletal: No clubbing, cyanosis or edema Neurological: Alert oriented, speech is clear, no facial asymmetry Psychiatric: Flat affect, appropriate mood, judgment insight intact : Deferred Hematologic/lymphatic: No anterior cervical or submitted, no petechiae, no bruising Objective Data Vital Signs Vital Signs: Vital Signs - 24 hr 02/24/22 15:24 02/24/22 15:51 02/24/22 19:10 Temperature 97.8 F Pulse Rate 106 H 88 78 Respiratory Rate 18 18 18 Blood Pressure 156/111 H 163/103 H 171/108 H Pulse Oximetry 100 98 98 02/24/22 21:21 02/24/22 22:10 02/24/22 23:29 Temperature 98.5 F Pulse Rate 71 78 67 Respiratory Rate 18 18 20 Blood Pressure 173/103 H 172/98 H 172/110 H Pulse Oximetry 98 98 100 02/25/22 00:11 02/25/22 06:34 02/25/22 08:05 Temperature 99.2 F 98.5 F Pulse Rate 80 77 Respiratory Rate 18 Blood Pressure 160/90 H 150/90 H 139/93 H Pulse O
--- NOTE | 2022-02-25 14:44 | PCNSR ---
On 02/25/22, the student,Kristy Howard, provided care and completed [facility] documentation on this patient. I have reviewed the student's documentation and agree with the findings.
[2022-02-25 16:15] VITALS: BP 118/72; PULSE 73; RESP 16; TEMP 37.1; O2SAT 99
[2022-02-25 20:52] VITALS: BP 119/70; PULSE 64; RESP 18; TEMP 36.5; O2SAT 99
[2022-02-26] MEDS: DEXTROSE 5%/LACTATED RINGERS 1,000 ML 150 ML IV CONT (02:36)
[2022-02-26 06:38] VITALS: BP 112/73; PULSE 68; RESP 18; TEMP 36.9; O2SAT 99
[2022-02-26 08:00] VITALS: O2SAT 99
[2022-02-26] MEDS: PROMETHAZINE HCL 25 MG/ML AMPUL IM (08:11)
[2022-02-26] MEDS: PANTOPRAZOLE SODIUM IV 40 MG VIAL IV PUSH (09:26)
[2022-02-26] MEDS: LOSARTAN POTASSIUM 25 MG TABLET PO (09:26)
[2022-02-26] MEDS: valACYclovir HCL 500 MG TABLET PO (09:26)
[2022-02-26 10:29] LABS: Basophils Percent Auto 0.3 % (0.2-1.2); Hematocrit 45.4 % (42.0-52.0); Immature Granulocyte Absolute 0.04 K/mm3 (0.00-0.031); Immature Granulocyte Percent A 0.3 % (0-0.5); Lymphocytes Absolute Auto 1.12 K/mm3 (0.9-3.2); Lymphocytes Percent Auto 9.7 % (18.3-44.2); Mean Corpuscular HGB Conc 35.2 g/dl (32-36); Mean Corpuscular Hemoglobin 28.7 pg (26-34); Mean Corpuscular Volume 81.5 fl (80-100); Monocytes Absolute Auto 0.6 K/mm3 (0.1-0.6); Monocytes Percent Auto 5.2 % (2.6-8.5); Neutrophils Absolute Auto 9.8 K/mm3 (1.3-6.7); Neutrophils Percent Auto 84.5 % (45.5-73.1); Platelet Count Result 216 k/mm3 (150-375); Red Blood Count 5.57 M/mm3 (4.6-6.20); Red Cell Distribution Width 13.3 % (11.5-14.5); White Blood Count 11.6 K/mm3 (4.5-10.0)
[2022-02-26 10:40] LABS: Alanine Aminotransferase 18 U/L (4-50); Albumin Level 4.1 g/dL (3.5-5.1); Alkaline Phosphatase 82 U/L (38-126); Anion Gap 9 mmol/L (8-16); Aspartate Amino Transferase 31 U/L (17-59); Bilirubin,Total 0.9 mg/dL (0.2-1.3); Blood Urea Nitrogen 8 mg/dL (9-20); Carbon Dioxide 22 mmol/L (22-30); Chloride 106 mmol/L (98-107); Estimated CRCL calculation 132 ml/min; Estimated Glomerular Filt Rate > 60; Glucose 112 mg/dL (65-110); Magnesium 1.7 mg/dL (1.6-2.3); Potassium 3.1 mmol/L (3.4-5.0); Sodium 137 mmol/L (137-145)
[2022-02-26] MEDS: ONDANSETRON INJ 4 MG/2 ML VIAL IV PUSH (12:35)
--- NOTE | 2022-02-26 12:57 | PM.DS ---
DS: Admitting Diagnosis Discharge Date 02/26/2022 Admitting Diagnosis Intractable nausea and vomiting DS: Discharge Diagnosis Discharge Diagnosis (1) Dehydration: Code(s): E86.0 - Dehydration Status: Acute Assessment and Plan: Patient had received 2 L of normal saline in the emergency department with continuation of IV fluids on medical floor. Continue to monitor renal function and fluid volume status Continue D5 with LR at 150 mL an hour, repeat BMP in the morning Monitor strict I&Os Patient was placed on Protonix for GI prophylaxis. P.r.n. Zofran and Phenergan as needed for nausea P.r.n. pain medications (2) Gastroenteritis: Code(s): K52.9 - Noninfective gastroenteritis and colitis, unspecified Status: Acute Assessment and Plan: Patient denies any food consumption and the ordinary and recent travel. Patient does endorse marijuana usage which may have induced intractable nausea and vomiting, consider cannabinoid hyper emesis (3) Benign essential hypertension: Code(s): I10 - Essential (primary) hypertension Status: Chronic Assessment and Plan: P.r.n. hydralazine for systolic greater than 160, notified the clinician prior to administration (4) Gastroesophageal reflux disease with esophagitis: Qualifiers: Esophagitis bleeding: without hemorrhage Qualified Code(s): K21.00 - Gastro-esophageal reflux disease with esophagitis, without bleeding Code(s): K21.00 - Gastro-esophageal reflux disease with esophagitis, without bleeding Status: Chronic Assessment and Plan: Protonix 40 mg oral daily (5) Abnormal urine: Code(s): R82.90 - Unspecified abnormal findings in urine Status: Acute Assessment and Plan: Monitor renal function and urinary output 4+ urine ketones found an urinalysis --stable (6) Cannabinoid hyperemesis syndrome: Code(s): R11.2 - Nausea with vomiting, unspecified; F12.90 - Cannabis use, unspecified, uncomplicated Status: Acute Assessment and Plan: Patient endorses marijuana usage and he reports that he uses 3 to 4 times a week at least. Patient does endorse that he smoked marijuana prior to hospitalization. --resolving DS: Summary Hospital Course Reason for hospitalization: Intractable nausea vomiting Hospital Course: 6-year-old male with past medical history of hypertension, hiatal hernia and reflux esophagitis status post Boaz fundoplication September 2021 who presented to the ER with intractable nausea, vomiting and diarrhea. The patient reported that he woke up having diarrhea. His diarrhea was shortly thereafter followed by nausea and was having dry heaves. He has had history of a Boaz fundoplication and is unable to really vomit. He has been having generalized abdominal cramping. He has been unable to tolerate even sips of liquid without continue dry heaves. He denies any known fevers. Has been having some chills and feeling flushed. He has had similar symptoms in the past back after he had his initial fundoplication in September 2019. However the patient consistently smokes marijuana. He denies any recent travel or exposure to potential contaminated food. He did receive Zofran and Phenergan in the emergency department with minimal improvement of the symptoms and he was admitted to the medical unit for further evaluation. While in the emergency department he did receive 2 L of isotonic fluids and TPO, patient continued to complain of abdominal cramping and dry heaves. Patient was able to eat a meal prior to discharge without significant acute nausea and vomiting. He there is mild improvement during his hospitalization and he will be sent home with ODT Zofran tablet as well as Protonix 40 mg for the next 4 weeks. Patient does have mild hypertension although he was informed to follow up with his primary care provider as an outpatient for repeat follow-up and plan of care. Status at Disc
== END 2022-02-26 14:25 | disposition home or self-care (01) ==
LOC: ANHED 16:37 → ANH3MED 22:24
PROVIDERS: Admitting Provider Internal Medicine; Emergency Provider Emergency Medicine; PCP Family Medicine; Visit Provider Nurse Practitioner Family
DX: E86.0 Dehydration (principal); K52.9 Noninfective gastroenteritis and colitis, unspecified; R82.90 Unspecified abnormal findings in urine; I10 Essential (primary) hypertension; K21.00 Gastro-esophageal reflux disease with esophagitis, without bleeding; F17.210 Nicotine dependence, cigarettes, uncomplicated; Z87.19 Personal history of other diseases of the digestive system; Q60.0 Renal agenesis, unilateral; F12.90 Cannabis use, unspecified, uncomplicated; Z79.899 Other long term (current) drug therapy
CPT/HCPCS: 36415; 74177; 76705; 80048; 80053; 80307; 81001; 83690; 83735; 85025; 96361; 96372; 96374; 96375; 96376; 99285; A9270; C9113; G0378; J0360; J2405; J2550; J7030; J7121; Q9967

== ENCOUNTER 2023-09-22 00:14 | Day surgery (SDC) | payer OTHER, SELFPAY ==
[2023-09-11 15:54] VITALS: BMI 31.9
--- NOTE | 2023-09-20 10:27 | SUR.PREOP ---
Patient called regarding upcoming procedure. Reviewed preop instructions, appointment times, and procedure prep.
[2023-09-22 08:33] VITALS: BP 124/86; PULSE 64; RESP 18; TEMP 36.1; O2SAT 100
[2023-09-22] MEDS: LACTATED RINGERS 1,000 ML 150 ML IV CONT (08:40)
--- NOTE | 2023-09-22 09:06 | WPDANESEPPF ---
Anes - Initial Pre Proc Eval Procedure: Operation Date: 09/22/23 09:30 Proposed Procedures p Esophagogastroduodenoscopy EGD - Delmar Saavedra MD Date/Time: 09/22/23 09:06 Surgeon: Delmar Saavedra MD Pre Op Diagnosis: GERDw/esophagitis,w/o bleeding,Vizcaino's esophagus Patient Data Age: 38 Gender: M Height: 1.78 m Weight: 99.2 kg Last Vital Signs Temp 97 F L 09/22/23 08:33 Pulse 64 09/22/23 08:33 Resp 18 09/22/23 08:33 BP 124/86 09/22/23 08:33 Pulse Ox 100 09/22/23 08:33 O2 Del Method Room Air 09/22/23 08:33 Allergies Allergy/AdvReac Type Severity Reaction Status Date / Time Penicillins Allergy Unknown Hives Verified 09/22/23 08:32 silicone Allergy Unknown Hives Verified 09/22/23 08:32 gluten Allergy Unknown Verified 09/22/23 08:32 Home Medications Medication Instructions Recorded Confirmed Type tadalafil 5 mg tablet 5 mg PO DAILY PRN sexual activity 12/06/22 09/11/23 Rx #10 tabs valacyclovir 500 mg tablet 500 mg PO QAM #90 tabs 07/20/23 09/11/23 Rx losartan 50 mg tablet 25 mg PO DAILY #90 tabs 08/10/23 09/11/23 Rx Patient hx anesthesia problems: none Family hx anesthesia problems: none Results Review: All pre-operative results and documents have been reviewed as part of the pre-operative evaluation. 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 Benign essential hypertension Flat feet, bilateral Gastroesophageal reflux disease with esophagitis Hiatal hernia NCGS (non-celiac gluten sensitivity) Smoker Unilateral congenital absence of kidney Congenital absence of left kidney Surgical History Surgical History History of esophagogastroduodenoscopy (EGD) History of laparoscopic appendectomy (~2003) History of Boaz fundoplication (09/22/21) Family History Family History Father Atrial fibrillation Social History Social History Smoking packs per day: 0.5 Smoking cigarettes per day: 10.0 Years smoked: 5 Smoking pack-years: 2.50 Smoking status: Current some day smoker Tobacco type: e-cigarettes/vaping Second hand tobacco smoke exposure: No Alcohol intake: current Drinks per week: 8 Alcohol use details: BEERS Substance use: current Substance use type: marijuana Last use: 09/07/23 Lack of Transportation: No Lack of Food: Never True Current Housing: I Have Housing Concerned About Future Housing: No Difficulty Paying Gas/Electric Bills: No Difficulty Paying for Meds: No Currently Unemployed: No Education: Trade/Vocational Certificate Difficulty w/ Childcare or Family Care: No Living arrangements: alone Spiritual care concerns: No Anes - Eval Final PreProcedure Day of Procedure 09/22/23 09:06 Patient weight: normal Heart: regular rate and rhythm Lungs: clear to auscultation Airway: Mallampati scale class II Neurological: alert and oriented Last oral intake: >/= 8 hours ASA classification: II Emergent: no Anesthetic plan: proceed Anesthesia type and monitoring: general GIVS and standard monitoring Results Review: All pre-operative results and documents have been reviewed as part of the pre-operative evaluation. Informed Consent: The patient's anesthetic plan and its attendant risks and benefits were discussed with the patient/family/POA. Questions were solicited and answers provided to the satisfaction of the patient/family/POA.
--- NOTE | 2023-09-22 09:08 | PM.HPGS ---
History of Present Illness History of Present Illness Consent: Risks, benefits, and alternatives have been discussed and questions answered. Patient agrees to proceed with procedure. Chief complaint: GERDw/esophagitis,w/o bleeding,Vizcaino's esophagus Narrative: Emigdio Luke is a 38 year old male here for EGD, 2020 EGD that showed long segment Vizcaino's, no dysplasia, also 4 cm hiatal hernia then underwent Boaz fundoplication. He noted having moments of abdominal discomfort with diarrhea and joint pain that improved after he started gluten free diet Review of Systems Constitutional: Constitutional: Denies headache(s) and Denies weakness Eyes: Eyes: Denies blurry vision ENT: Reports Normal hearing present, Denies headache(s) and Denies neck pain Cardiovascular: Cardiovascular: Denies chest pain and Denies dyspnea Respiratory: Respiratory: Denies dyspnea Gastrointestinal: Gastrointestinal: Reports no additional gastrointestinal complaints Genitourinary: Genitourinary: Denies dysuria Musculoskeletal: Musculoskeletal: Denies neck pain Integumentary/Breasts: Skin/Breast: Denies dry skin Neurologic: Reports Normal hearing present, Denies headache(s) and Denies weakness Psychiatric: Psychiatric: Denies anxiety Endocrine: Endocrine: Denies change in body appearance Hematologic/Lymphatic: Hematologic/Lymphatic: Denies easy bleeding Allergic/Immunologic: Allergic/Immunologic: Denies urticaria PMFSH Past Medical History Medical History 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 Benign essential hypertension Flat feet, bilateral Gastroesophageal reflux disease with esophagitis Hiatal hernia NCGS (non-celiac gluten sensitivity) Smoker Unilateral congenital absence of kidney Congenital absence of left kidney Surgical History Surgical History History of esophagogastroduodenoscopy (EGD) History of laparoscopic appendectomy (~2003) History of Boaz fundoplication (09/22/21) Family History Family History Father Atrial fibrillation Social History Social History Smoking packs per day: 0.5 Smoking cigarettes per day: 10.0 Years smoked: 5 Smoking pack-years: 2.50 Smoking status: Current some day smoker Tobacco type: e-cigarettes/vaping Second hand tobacco smoke exposure: No Alcohol intake: current Drinks per week: 8 Alcohol use details: BEERS Substance use: current Substance use type: marijuana Last use: 09/07/23 Lack of Transportation: No Lack of Food: Never True Current Housing: I Have Housing Concerned About Future Housing: No Difficulty Paying Gas/Electric Bills: No Difficulty Paying for Meds: No Currently Unemployed: No Education: Trade/Vocational Certificate Difficulty w/ Childcare or Family Care: No Living arrangements: alone Spiritual care concerns: No Meds Home Medications and Allergies Home Medications Medication Instructions Recorded Confirmed Type tadalafil 5 mg tablet 5 mg PO DAILY PRN sexual activity 12/06/22 09/11/23 Rx #10 tabs valacyclovir 500 mg tablet 500 mg PO QAM #90 tabs 07/20/23 09/11/23 Rx losartan 50 mg tablet 25 mg PO DAILY #90 tabs 08/10/23 09/11/23 Rx Allergies Allergy/AdvReac Type Severity Reaction Status Date / Time Penicillins Allergy Unknown Hives Verified 09/22/23 08:32 silicone Allergy Unknown Hives Verified 09/22/23 08:32 gluten Allergy Unknown Verified 09/22/23 08:32 Vital Signs Vital Signs - 24 hr 09/22/23 08:33 Temperature 97 F L Pulse Rate 64 Respiratory Rate 18 Blood Pressure 124/86 Pulse Oximetry 100 Oxygen Delivery Room Air Exam Const: General: comfortable and no acute distress HENMT: Face/Nose/Sinus: Normal nares present Eyes: General: appe
[2023-09-22] MEDS: BENZOCAINE (*SP) 60 ML SPRAY CAN (HURRICAINE) 1 SPRAY MUCOUS MEM (09:12)
[2023-09-22 09:23] VITALS: BP 91/68; PULSE 60; RESP 18; O2SAT 98
[2023-09-22 09:33] VITALS: BP 93/64; PULSE 60; RESP 18; O2SAT 98
[2023-09-22 09:43] VITALS: BP 110/75; PULSE 62; RESP 18; O2SAT 100
== END 2023-09-22 09:52 | disposition home or self-care (01) ==
PROVIDERS: PCP Family Medicine; Visit Provider Internal Medicine Gastroenterology
PROC: 0DJ08ZZ Inspection of Upper Intestinal Tract, Via Natural or Artificial Opening Endoscopic (ICD-10-PCS; CPT 43235; principal; 2023-09-22 09:30)
DX: K22.70 Barrett's esophagus without dysplasia (principal); K21.00 Gastro-esophageal reflux disease with esophagitis, without bleeding; K90.41 Non-celiac gluten sensitivity; I10 Essential (primary) hypertension; F17.290 Nicotine dependence, other tobacco product, uncomplicated; F12.90 Cannabis use, unspecified, uncomplicated; Z82.49 Family history of ischemic heart disease and other diseases of the circulatory system
CPT/HCPCS: 43239; 88305; J2704; J7120

== ENCOUNTER 2024-01-30 15:13 | Outpatient (CLI) | payer OTHER, SELFPAY ==
--- NOTE | 2024-01-30 15:24 | ECG_ITS ---
Measurements Intervals [place] Rate: 80 P: 24 TN: 173 QRS: -5 QRSD: 94 T: 11 QT: 349 QTc: 403 Interpretive Statements SINUS RHYTHM BASELINE ARTIFACT- I, II, III, AVR, AVL, AVF NORMAL ECG COMPARED TO ECG 08/30/2021 14:37:04 NO SIGNIFICANT CHANGES Electronically Signed On 01-30-2024 16:10:32 CDT by Adam Fleming D.O.
== END 2024-01-30 15:14 | disposition home or self-care (01) ==
LOC: ANHSURGERY 15:19
PROVIDERS: PCP Family Medicine; Visit Provider Surgery
DX: Z01.818 Encounter for other preprocedural examination (principal); I10 Essential (primary) hypertension; K40.90 Unilateral inguinal hernia, without obstruction or gangrene, not specified as recurrent
CPT/HCPCS: 36415; 86850; 86900; 86901; 93005

== ENCOUNTER 2024-02-05 | Day surgery (SDC) | payer OTHER, SELFPAY ==
[2024-01-29 16:47] VITALS: BMI 31.8
--- NOTE | 2024-01-29 17:18 | PC.NURSE ---
Report to the Outpatient Waiting Room, entrance under the green pavilion located off [facility], at 1130 on 02-05-24. Planned Procedure Time: 1330. Time changes happen often and if your time is changed the preop area will call you the afternoon before. - You and your visitor will be asked to self-screen and do not enter if you have any COVID symptoms. - A mask is optional within the hospital at this time. Patients may have clear liquids (water, carbonated beverages, clear teas, apple juice) until 3 hours prior to surgery with a maximum of 20 ounces. 1030 - No food from midnight until time of surgery - Infants may have breast milk until 4 hours before surgery, formula 6 hours prior to surgery. - Children will be allowed to drink immediately following surgery. If applicable, please bring a bottle or sippy cup to assist with drinking. Juice, water, soda, and popsicles are readily available. For infants on formula, please bring formula the day of surgery. Pacifiers are allowed. Take the following medications with a SIP of water the morning of surgery: None DO NOT STOP ANY OF YOUR OTHER PRESCRIPTION MEDICATIONS PRIOR TO SURGERY ?EXCEPT THE FOLLOWING Medications to discontinue per physician: Aleve; vitamins and supplements Date to take last dose: Per Dr. Guzman; 02-02-24 Please no make-up, nail yakut, hairspray, perfume, deodorant, or body powder the day of surgery. No jewelry (including any body piercings) or valuables the day of surgery, leave them at home. Please take a shower or bath the night before, or the morning of, surgery with an antibacterial soap. Wear comfortable, loose fitting clothing. Children are encouraged to wear pajamas. - Jewelry must be removed prior to entering the operating room. Rings and piercings that are not removed may be cut off. - The hospital will not accept responsibility for valuables. - Please leave all valuables, including medications, at home the day of surgery. If you are going home after surgery, a licensed driver service technician must drive you home. - NO public transportation without another adult if you receive anesthesia. - We recommend that an adult stay with you for 24 hours following discharge. - We also recommend that you do not drive, make important decision, drink alcoholic beverages, or take any drugs that were not prescribed by your health care provider for at least 24 hours after your discharge time. For Pediatric surgeries, we recommend two adults accompany the child home. Follow any additional instructions given to you from your surgeon. If you or anyone in your household have experienced Covid symptoms in the past week, please notify your surgeon or the nurse liaison at the phone number below for possible testing. Telephone instructions given to Emigdio Luke and asked if any additional questions and then verbalized understanding. Patient advised to call surgeon office or pre surgery nurse liaison [phone] if any additional questions.
[2024-02-05] VITALS (12 sets, daily range): BP systolic 117–139; BP diastolic 76–100; PULSE 70–105; RESP 14–16; TEMP 36.7; O2SAT 96–100
--- NOTE | 2024-02-05 08:55 | WPDHPUPDATE1 ---
History and Physical Update Update Date/Time: 02/05/24 08:55 History and Physical has been reviewed, including an updated exam of the patient. There are NO changes in the patient's condition. Risks, benefits, and alternatives have been discussed and questions answered. Patient agrees to proceed with procedure.
--- NOTE | 2024-02-05 12:08 | WPDANESEPPF ---
Anes - Initial Pre Proc Eval Procedure: Operation Date: 02/05/24 13:30 Proposed Procedures p Robotic Assisted Right Inguinal Hernia Repair with Mesh - Mirna Guzman MD Date/Time: 02/05/24 12:08 Surgeon: Mirna Guzman MD Pre Op Diagnosis: right Inguinal Hernia Patient Data Age: 38 Gender: M Height: 1.78 m Weight: 100.7 kg Allergies Allergy/AdvReac Type Severity Reaction Status Date / Time Penicillins Allergy Intermediate Hives Verified 01/29/24 16:43 gluten Allergy Mild Gastrointestinal Verified 01/29/24 16:43 Upset silicone Allergy Mild Rash Verified 01/29/24 16:43 Home Medications Medication Instructions Recorded Confirmed Type tadalafil 5 mg tablet 5 mg PO DAILY PRN sexual activity 12/06/22 01/29/24 Rx #10 tabs losartan 50 mg tablet 25 mg PO DAILY #90 tabs 08/10/23 01/29/24 Rx valacyclovir 500 mg tablet 500 mg PO QAM #90 tabs 01/22/24 01/29/24 Rx atomoxetine 25 mg capsule 25 mg PO HS 01/29/24 01/29/24 History magnesium 250 mg tablet 250 mg PO DAILY 01/29/24 01/29/24 History naproxen sodium 220 mg tablet 220 mg PO DAILY PRN Pain, Moderate 01/29/24 01/29/24 History (Aleve) omeprazole 20 mg capsule,delayed 20 mg PO DAILY 01/29/24 01/29/24 History release Patient hx anesthesia problems: none Family hx anesthesia problems: none Results Review: All pre-operative results and documents have been reviewed as part of the pre-operative evaluation. 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 Benign essential hypertension Flat feet, bilateral Gastroesophageal reflux disease with esophagitis Hiatal hernia NCGS (non-celiac gluten sensitivity) Smoker Unilateral congenital absence of kidney Congenital absence of left kidney Surgical History Surgical History History of esophagogastroduodenoscopy (EGD) History of laparoscopic appendectomy (~2003) History of Boaz fundoplication (09/22/21) Family History Family History Father Atrial fibrillation Social History Social History Smoking packs per day: 1 Smoking cigarettes per day: 20.0 Years smoked: 3 Smoking pack-years: 3.00 Smoking status: Former smoker Tobacco type: cigarettes Second hand tobacco smoke exposure: No Smoking end date: 11/06/18 Alcohol intake: current Drinks per week: 6 Alcohol use details: sometimes Substance use: current Substance use type: marijuana Lack of Transportation: No Lack of Food: Never True Current Housing: I Have Housing Concerned About Future Housing: No Difficulty Paying Gas/Electric Bills: No Difficulty Paying for Meds: No Currently Unemployed: No Education: Trade/Vocational Certificate Difficulty w/ Childcare or Family Care: No Living arrangements: with family Spiritual care concerns: No Anes - Eval Final PreProcedure Day of Procedure 02/05/24 12:08 Patient weight: obese Heart: regular rate and rhythm Lungs: clear to auscultation Airway: Mallampati scale class II Neurological: alert and oriented Last oral intake: >/= 8 hours ASA classification: III Emergent: no Anesthetic plan: proceed Anesthesia type and monitoring: general ETT and standard monitoring Results Review: All pre-operative results and documents have been reviewed as part of the pre-operative evaluation. Informed Consent: The patient's anesthetic plan and its attendant risks and benefits were discussed with the patient/family/POA. Questions were solicited and answers provided to the satisfaction of the patient/family/POA.
[2024-02-05] MEDS: LACTATED RINGERS 1,000 ML 30 ML IV CONT ×3 (12:10→15:25)
[2024-02-05] MEDS: ACETAMINOPHEN 500 MG TABLET 1000 MG PO (12:10)
[2024-02-05] MEDS: KETOROLAC 15 MG/ML VIAL (*BKC) IV PUSH (12:10)
[2024-02-05] MEDS: ceFAZolin 2 GM/D5W 50 ML 2 GM/50 ML BAG IVPB (12:57)
[2024-02-05] MEDS: BUPIVACAINE/EPINEPHRINE 0.5% 50 ML VIAL 30 ML INFILTRATE (13:34)
--- NOTE | 2024-02-05 14:11 | W.PM.PROC2 ---
Procedure Note - Detailed Date of Procedure 02/05/24 Pre-op Diagnosis right inguinal hernia Post-op Diagnosis Same Procedure Performed robotic assisted right inguinal hernia repair with mesh Surgeon Mirna Guzman MD Anesthesia General Indications 38 y/o M presenting to office with right inguinal hernia Findings indirect right inguinal hernia, lower midline adhesions Description of Procedure Patient was brought into the operating room and placed in the supine position. After adequate induction of general anesthesia, the patient was prepped and draped in normal sterile fashion. A time-out was then done to verify the patient's identity, as well as the procedure being performed. Began by making a 8 mm incision in the supraumbilical region, a Veress needle was then placed into the peritoneal cavity. CO2 gas was then insufflated and after adequate pneumoperitoneum was achieved, the Veress needle was removed. I then placed an 8 mm trocar through this incision. I then placed the endoscope through this trocar site and under direct visualization placed 2 further 8 mm ports in the right and left mid abdomen. The [employer] robot was then docked to the 3 trocar sites. I then scrubbed out and went to the robotic console. Upon examining the pelvis, it was noted that the patient had a moderate right inguinal hernia. The left side was examined and no hernia defect was noted. There were noted adhesions to the lower midline from previous abdominal surgery. These adhesions were taken down sharply with the robotic scissors. Once adhesions were free, I began by making a preperitoneal flap approximately 6 cm superior to the defect. This flap was carried medially past the umbilical ligaments in laterally to the transversalis. It then began dissection of my medial compartment taking this down to the pubic tubercle. I then began the lateral dissection taking this down to the transversalis fascia. Once these compartments were achieved, I began dissection around the cord structures. A moderate indirect hernia was noted at this point. Using careful dissection, was able to reduce indirect hernia sac off the cord structures. Once this was adequately done, I went ahead and placed a large piece of 3D Max mesh into the abdominal cavity. The mesh was carefully positioned, centering the center of the mesh over the indirect defect. Once this was done, was very satisfied with our repair. Using 3-0 Vicryl sutures, I tacked the mesh medially to Edmond's ligament. Two lateral sutures were placed from the mesh to the transversalis fascia. I then closed the peritoneal flap with a running 2.0 V Lock suture. The abdomen was then desufflated, and all ports were removed. All incisions were then closed with the 4.0 monocryl suture. Dermabond was placed on each wound. The patient tolerated the procedure well, was extubated in the operating room postoperatively, and will now be transferred to the recovery room in stable condition. Implants large 3DMax mesh Estimated Blood Loss 10 Drains No Packing No Pathology None sent Complications No immediate complications Condition Stable Disposition PACU [facility] Billing Surgery - Charge Forward: Surgery Billing
[2024-02-05] MEDS: oxyCODONE HCL (*CRX) 5 MG TAB IR PO (16:30)
== END 2024-02-05 17:55 | disposition home or self-care (01) ==
PROVIDERS: PCP Family Medicine; Visit Provider Surgery
PROC: 8E0Y4CZ Robotic Assisted Procedure of Lower Extremity, Percutaneous Endoscopic Approach (ICD-10-PCS; CPT 49650; principal; 2024-02-05 13:30)
DX: K40.90 Unilateral inguinal hernia, without obstruction or gangrene, not specified as recurrent (principal); K66.0 Peritoneal adhesions (postprocedural) (postinfection); I10 Essential (primary) hypertension; F12.90 Cannabis use, unspecified, uncomplicated; E66.9 Obesity, unspecified; Z68.30 Body mass index [BMI] 30.0-30.9, adult; Z79.1 Long term (current) use of non-steroidal anti-inflammatories (NSAID); Z98.890 Other specified postprocedural states; Z90.5 Acquired absence of kidney; Z87.891 Personal history of nicotine dependence; Z82.49 Family history of ischemic heart disease and other diseases of the circulatory system
CPT/HCPCS: 49650; S2900; 36415; 86850; 86900; 86901; 93005; A9270; C1781; J0690; J1100; J1200; J1885; J2405; J2704; J7120

== ENCOUNTER 2024-02-21 11:44 | Outpatient (CLI) | payer OTHER, SELFPAY ==
[2024-02-21 12:07] LABS: Appearance Urine Clear (Clear); Bilirubin Urine Negative (Negative); Blood Urine Negative (Negative); Color Urine Yellow (Yellow); Glucose Urine UA Negative (Negative); Ketones Urine Negative (Negative); Leukocyte Esterase Ur Negative LEU/UL (Negative); Nitrate Urine Negative (Negative); Protein Urine Negative (Negative); Specific Grav Ur 1.024 (1.001-1.035); pH Urine 6.5 (5.0-9.0)
[2024-02-21 12:15] LABS: Add Urine Microscopic? NO
== END 2024-02-21 11:45 | disposition home or self-care (01) ==
LOC: ANHLAB 11:47
PROVIDERS: PCP Family Medicine; Visit Provider Surgery
DX: R30.0 Dysuria (principal)
CPT/HCPCS: 81003